=== PATIENT | female | born 1985 | race Hispanic/Latino ===

== ENCOUNTER 2018-07-29 09:37 | Emergency (ER) | payer OTHER ==
[~2018-07-29] VITALS: Ht 162.6 cm; Wt 108.9 kg
[2018-07-29] MEDS ORDERED: METFORMIN HCL500 MG PO (10:51)
[2018-07-29] MEDS ORDERED: SPIRONOLACTONE25 MG PO (10:51)
[2018-07-29] MEDS ORDERED: DOXYCYCLINE HY100 MG PO (10:51)
[2018-07-29] MEDS ORDERED: LEXAPRO10 MG PO (10:51)
[2018-07-29] MEDS ORDERED: HYDROXYZINE HCL25 MG PO (10:51)
[2018-07-29] MEDS ORDERED: LORAZEPAM 0.5 MG TAB PO ONE (11:00)
--- NOTE | 2018-07-29 12:38 | Diagnostic Imaging Report ---
EXAMINATION: CHEST 2 VIEWS INDICATION: \S\shortness of breath \S\[id number] \S\1122 \S\Y COMPARISON: None FINDINGS: PA and lateral views TUBES and LINES: None. LUNGS: Lungs are well inflated. Lungs are clear. There is no evidence of pneumonia or pulmonary edema. PLEURA: No pleural effusion or pneumothorax. HEART AND MEDIASTINUM: The cardiomediastinal silhouette is unremarkable. BONES AND SOFT TISSUES: No acute osseous lesion. Soft tissues are unremarkable. UPPER ABDOMEN: No free air under the diaphragm. IMPRESSION: No acute thoracic abnormality. Signed by: Dr. Catherine Valladares M.D. on 07/29/2018 12:34 PM
== END 2018-07-29 15:10 | disposition home or self-care (01) ==
LOC: ER 09:37
DX: F41.1 Generalized anxiety disorder (principal); F41.0 Panic disorder [episodic paroxysmal anxiety]; E11.9 Type 2 diabetes mellitus without complications
CPT/HCPCS: 71046; 81025; 93005; 99284

== ENCOUNTER 2018-09-25 12:11 | Emergency (ER) | payer SELFPAY ==
[~2018-09-25] VITALS: Ht 162.6 cm; Wt 108.9 kg
[~2018-09-25 12:11] MED LIST: DOXYCYCLINE HY100 MG PO; HYDROXYZINE HCL25 MG PO; LEXAPRO10 MG PO; METFORMIN HCL500 MG PO; SPIRONOLACTONE25 MG PO
--- OUTSIDE RECORDS SUMMARY | 2018-09-25 12:13 | XMS REPORT ---
[facility] Address Unknown Phone Unavailable Care Team Providers Care Chief Of Staff Name Role Phone Stefania HARRIS LAIRD Unavailable Unavailable Problems This patient has no known problems. Allergies, Adverse Reactions, Alerts This patient has no known allergies or adverse reactions. Medications This patient has no known medications. Encounters Start Date/Time End Date/Time Encounter Type Admission Type Attending [facility] Facility Care Department Encounter ID 2018-07-16 00:00:00 2018-07-16 00:00:00 Outpatient [facility] [id number] 2018-06-18 13:00:47 2018-06-18 13:00:47 Outpatient [facility] [id number] 2018-05-31 00:00:00 2018-05-31 00:00:00 Outpatient [facility] [id number] 2018-04-24 00:00:00 2018-04-24 00:00:00 Outpatient [facility] [id number] 2018-03-25 14:16:51 2018-03-25 14:16:51 Outpatient [facility] [id number] 2018-03-06 13:36:30 2018-03-06 13:36:30 Outpatient [facility] [id number] 2018-02-01 00:00:00 2018-02-01 00:00:00 Outpatient [facility] [id number] 2018-01-09 00:00:00 2018-01-09 00:00:00 Outpatient [facility] [id number] 2018-01-07 00:00:00 2018-01-07 00:00:00 Outpatient [facility] [id number] 2018-01-07 00:00:00 2018-01-07 00:00:00 Outpatient [facility] [id number] 2017-12-21 13:13:16 2017-12-21 13:13:16 Outpatient [facility] [id number] 2017-12-05 16:42:51 2017-12-05 16:42:51 Outpatient [facility] [id number] 2017-11-15 00:00:00 2017-11-15 00:00:00 Outpatient [facility] [id number] 2017-10-26 00:00:00 2017-10-26 00:00:00 Outpatient [facility] [id number] 2017-10-24 10:53:47 2017-10-24 10:53:47 Outpatient [facility] [id number] 2017-10-05 00:00:00 2017-10-05 00:00:00 Outpatient [facility] [id number] 2017-09-20 12:55:14 2017-09-20 12:55:14 Outpatient [facility] [id number] 2017-09-13 00:00:00 2017-09-13 00:00:00 Outpatient [facility] [id number] 2017-09-12 11:13:54 2017-09-12 11:13:54 Outpatient [facility] [id number] 2017-08-10 10:10:54 2017-08-10 10:10:54 Outpatient [facility] [id number] 2017-08-02 00:00:00 2017-08-02 00:00:00 Outpatient [facility] [id number] 2017-07-12 09:53:15 2017-07-12 09:53:15 Outpatient [facility] [id number] 2017-07-10 10:26:14 2017-07-10 10:26:14 Outpatient [facility] [id number] 2017-06-12 00:00:00 2017-06-12 00:00:00 Outpatient [facility] [id number] 2017-06-04 15:28:42 2017-06-04 15:28:42 Outpatient [facility] [id number] 2017-05-28 10:38:49 2017-05-28 10:38:49 Outpatient [facility] [id number] 2017-05-25 00:00:00 2017-05-25 00:00:00 Outpatient [facility] [id number] 2017-05-25 00:00:00 2017-05-25 00:00:00 Outpatient [facility] [id number] 2017-05-25 00:00:00 2017-05-25 00:00:00 Outpatient [facility] [id number] 2017-05-17 00:00:00 2017-05-17 00:00:00 Outpatient [facility] [id number] 2017-05-10 00:00:00 2017-05-10 00:00:00 Outpatient [facility] [id number] 2017-05-07 11:24:53 2017-05-07 11:24:53 Outpatient [facility] [id number] 2017-05-03 09:00:26 2017-05-03 09:00:26 Outpatient [facility] [id number] 2017-04-30 00:00:00 2017-04-30 00:00:00 Outpatient [facility] [id number] Results Test Description Test Time Test Comments Text Results Atomic Results Result Comments CHEST 2 VIEWS 2018-07-29 12:34:00 [place] [address] Patient Name: ROSY GARCIA MR #: [id number] : 1985 Age/Sex: 32/F Req #: [id number] Adm Physician: Ordered by: MELISSA MONROY NP Report #: [id number] Location: ER Room/Bed: Procedure: [id number] DX/CHEST 2 VIEWS Exam Date: 07/29/18 Exam Time: 1122 REPORT STATUS: Signed EXAMINATION: CHEST 2 VIEWS INDICATION: COMPARISON: None FINDINGS: PA and lateral views TUBES and LINES: None. LUNGS: Lungs are well inflated. Lungs are clear. There is no evidence of pneumonia or pulmonary edema. PLEURA: No pleural effusion or pneumothorax. HEART AND MEDIASTINUM: The cardiomediastinal silhouette is unremarkable. BONES AND SOFT TISSUES: No acute osseous lesion. Soft tissues are unremarkable. UPPER ABDOMEN: No free air under the diaphragm. IMPRESSION: No acute thoracic abnormality. Signed by: Dr. Graeme Casper M.D. on 07/29/2018 12:34 PM Dictated By: GRAEME CASPER MD [id number] Transcribed By: KHAI on 07/29/18 1234 COPY TO: MELISSA MONROY NP
[2018-09-25] MEDS ORDERED: SODIUM CHLORIDE 0.9% 1000ML 1,000 ML IV STA (12:39)
[2018-09-25 12:53] LABS: BASOPHILS % 0.3 % (0.0-1.0); EOSINOPHILS # (AUTO) 0.1 (0.0-0.4); EOSINOPHILS % 1.6 % (0.0-6.0); HEMATOCRIT 42.3 % (34.2-44.1); HEMOGLOBIN 14.3 g/dL (12.0-16.0); LYMPHOCYTES % 39.3 % (18.0-39.1); MEAN CORPUSCULAR HEMOGLOBIN 30.3 pg (28-32); MEAN CORPUSCULAR HGB CONC 33.8 g/dL (31-35); MEAN CORPUSCULAR VOLUME 89.6 fL (81-99); MONOCYTES # (AUTO) 0.5 (0.2-0.8); MONOCYTES % 6.2 % (4.4-11.3); NEUTROPHILS % 52.3 % (38.7-80.0); PLATELET COUNT 333 x10e3/uL (140-360); RED BLOOD COUNT 4.72 x10e6/uL (3.6-5.1); RED CELL DISTRIBUTION WIDTH 12.1 % (11.7-14.4)
[2018-09-25 13:10] LABS: ALANINE AMINOTRANSFERASE 31 IU/L (0-55); ALBUMIN 3.4 g/dL (3.5-5.0); ALBUMIN/GLOBULIN RATIO 0.9 (0.8-2.0); ALKALINE PHOSPHATASE 103 IU/L (40-150); ANION GAP 13.7 mmol/L (8-16); BLOOD UREA NITROGEN 8 mg/dL (7-26); BUN/CREATININE RATIO 10 (6-25); CALCIUM 9.1 mg/dL (8.4-10.2); CARBON DIOXIDE 27 mmol/L (22-29); CHLORIDE 98 mmol/L (98-107); EST GLOMERULAR FILTRATION RATE > 60 ML/MIN (60-); GLUCOSE 322 mg/dL (74-118); MAGNESIUM 1.7 MG/DL (1.3-2.1); POTASSIUM 3.7 mmol/L (3.5-5.1); SODIUM 135 mmol/L (136-145)
--- NOTE | 2018-09-25 13:22 | Diagnostic Imaging Report ---
Examination: Single AP view of the chest. COMPARISON: 07/29/2018 INDICATION: Facial numbness DISCUSSION: Lung volumes are low. No consolidation, pleural effusion, or pneumothorax. Stable cardiomediastinal contour. No overt pulmonary edema. No acute osseous abnormality. IMPRESSION: Low lung volumes without acute cardiopulmonary abnormality. Signed by: Dr. Vitaliy Díaz M.D. on 09/25/2018 1:18 PM
[2018-09-25 13:32] LABS: THYROID STIMULATING HORMONE 2.563 uIU/mL (0.350-4.940)
[2018-09-25 13:38] LABS: PREGNANCY TEST, URINE NEGATIVE (NEGATIVE)
--- NOTE | 2018-09-25 13:38 | Diagnostic Imaging Report ---
History: Left facial numbness Comparison studies: None Technique: Axial images were obtained from the skull base to the vertex. Coronal and sagittal reconstructions obtained from the axial data. Dose modulation, iterative reconstruction, and/or weight based adjustment of the mA/kV was utilized to reduce the radiation dose to as low as reasonably achievable. Findings: Scalp/skull: No abnormalities. No fractures, blastic or lytic lesions. Extra-axial spaces: No masses. No fluid collections. Brain sulci: Appropriate for age. Ventricles: Normal in size and configuration. No hydrocephalus. Parenchyma: No abnormal densities. No masses, hemorrhage, acute or chronic cortical vascular insults. Sellar/suprasellar region: No abnormalities Craniocervical junction: Patent foramen magnum. No Chiari one malformation. IMPRESSION: No abnormalities . . Signed by: DR Jaime Bunch M.D. on 09/25/2018 1:35 PM
[2018-09-25 13:53] LABS: CLARITY,URINE SL CLOUDY (CLEAR); COLOR,URINE YELLOW (YELLOW); KETONES,URINE TRACE (NEGATIVE); LEUKOCYTE ESTERASE ,URINE NEGATIVE (NEGATIVE); NITRITE,URINE NEGATIVE (NEGATIVE); PROTEIN,URINE DIPSTICK NEGATIVE (NEGATIVE); URINE UROBILINOGEN 0.2 mg/dL (0.2 - 1)
[2018-09-25 13:54] LABS: BACTERIA,URINE FEW /HPF; BILIRUBIN,URINE NEGATIVE (NEGATIVE); WBC,URINE (MAN) 0-5 /HPF (0-5)
[2018-09-25 13:55] LABS: AMORPHOUS SEDIMENT,URINE FEW (FEW); EPITHELIAL CELLS,URINE MODERATE /LPF; YEAST,URINE RARE
[2018-09-25] MEDS ORDERED: INSULIN REGULAR, HUMAN 100 UNIT/1 ML 3ML VIAL IV ONE (14:08)
== END 2018-09-25 16:01 | disposition home or self-care (01) ==
LOC: ER 12:11
DX: G51.0 Bell's palsy (principal); E11.9 Type 2 diabetes mellitus without complications; E28.2 Polycystic ovarian syndrome
CPT/HCPCS: 36415; 70450; 71045; 80053; 81001; 81025; 82948; 83735; 84443; 85025; 87086; 93005; 99284; J7030

== ENCOUNTER 2018-12-09 10:43 | Emergency (ER) | payer OTHER ==
[~2018-12-09] VITALS: Ht 162.6 cm; Wt 115.2 kg
[2018-12-09] MEDS ORDERED: KETOROLAC TROMETHAMINE 30 MG/ML VIAL IV STA (10:55)
[2018-12-09] MEDS ORDERED: ACETAMINOPHEN 325 MG TAB PO ONE (11:15)
--- NOTE | 2018-12-09 11:30 | NUR ---
X-RAY AT BEDSIDE FOR CXR.
[2018-12-09 11:34] LABS: BASOPHILS % 0.4 % (0.0-1.0); EOSINOPHILS # (AUTO) 0.1 (0.0-0.4); HEMATOCRIT 41.6 % (34.2-44.1); LYMPHOCYTES # (AUTO) 2.9 (1.0-3.2); LYMPHOCYTES % 41.4 % (18.0-39.1); MEAN CORPUSCULAR HEMOGLOBIN 30.8 pg (28-32); MEAN CORPUSCULAR HGB CONC 33.7 g/dL (31-35); MEAN CORPUSCULAR VOLUME 91.6 fL (81-99); MONOCYTES # (AUTO) 0.4 (0.2-0.8); NEUTROPHILS # (AUTO) 3.5 (2.1-6.9); NEUTROPHILS % 49.5 % (38.7-80.0); PLATELET COUNT 367 x10e3/uL (140-360); RED BLOOD COUNT 4.54 x10e6/uL (3.6-5.1); RED CELL DISTRIBUTION WIDTH 12.3 % (11.7-14.4)
[2018-12-09 11:50] LABS: ALANINE AMINOTRANSFERASE 40 IU/L (0-55); ALBUMIN 3.2 g/dL (3.5-5.0); ALBUMIN/GLOBULIN RATIO 0.9 (0.8-2.0); ALKALINE PHOSPHATASE 110 IU/L (40-150); ANION GAP 14.4 mmol/L (8-16); BLOOD UREA NITROGEN 7 mg/dL (7-26); BUN/CREATININE RATIO 8 (6-25); CALCIUM 8.6 mg/dL (8.4-10.2); CARBON DIOXIDE 27 mmol/L (22-29); CHLORIDE 99 mmol/L (98-107); CREATINE KINASE 59 IU/L (29-168); CREATININE, SERUM 0.85 mg/dL (0.57-1.11); EST GLOMERULAR FILTRATION RATE > 60 ML/MIN (60-); POTASSIUM 4.4 mmol/L (3.5-5.1); SODIUM 136 mmol/L (136-145)
[2018-12-09 11:52] LABS: GLUCOSE 444 mg/dL (74-118)
[2018-12-09] MEDS ORDERED: SODIUM CHLORIDE 0.9% 1000ML 1,000 ML IV SCH (12:15)
--- NOTE | 2018-12-09 12:20 | Diagnostic Imaging Report ---
EXAMINATION: CHEST SINGLE (PORTABLE) INDICATION: Chest pain. COMPARISON: Chest radiograph 09/25/2018. FINDINGS: TUBES and LINES: None. LUNGS: Low lung volumes which decreases sensitivity and specificity for pathology. Mild patchy bibasilar opacities. No evidence of lobar consolidation or pulmonary edema. PLEURA: No pleural effusion or pneumothorax. HEART AND MEDIASTINUM: The cardiomediastinal silhouette is unremarkable. BONES AND SOFT TISSUES: No acute osseous lesion. Soft tissues are unremarkable. UPPER ABDOMEN: No free air under the diaphragm. IMPRESSION: Low lung volumes with mild patchy bibasilar opacities, likely atelectasis. No evidence of acute radiographic abnormality. Signed by: Dr. Roosevelt Zimmerman MD on 12/09/2018 12:17 PM
[2018-12-09 14:49] VITALS: BP 123/71
[2018-12-09] MEDS ORDERED: INSULIN LISPRO 100 UNIT/1 ML 3ML VIAL SQ SCH (16:30)
== END 2018-12-09 15:05 | disposition home or self-care (01) ==
LOC: ER 10:43
DX: R07.89 Other chest pain (principal); S29.011A Strain of muscle and tendon of front wall of thorax, initial encounter; S29.012A Strain of muscle and tendon of back wall of thorax, initial encounter; E11.9 Type 2 diabetes mellitus without complications
CPT/HCPCS: 36415; 71045; 80053; 82550; 82553; 82948; 83880; 84484; 85025; 85379; 93005; 99283; J1885; J7030

== ENCOUNTER 2018-12-18 17:58 | Emergency (ER) | payer OTHER ==
[~2018-12-18] VITALS: Ht 162.6 cm; Wt 109.8 kg
[2018-12-18] MEDS ORDERED: ZOFRAN4 MG SL (18:55)
[2018-12-18] MEDS ORDERED: AUGMENTIN 875-1 EACH PO (18:56)
--- NOTE | 2018-12-18 19:42 | NUR ---
PT NOT IN WAITING ROOM FOR D/C INTRUCTIONS AND PRESCRIPTIONS.
--- NOTE | 2018-12-18 20:00 | NUR ---
NOT IN WAITING ROOM
== END 2018-12-18 20:15 | disposition left against medical advice (07) ==
LOC: ER 17:58
DX: M54.2 Cervicalgia (principal)

== ENCOUNTER 2019-01-02 19:10 | Emergency (ER) | payer OTHER ==
[~2019-01-02] VITALS: Ht 162.6 cm; Wt 109.8 kg
[~2019-01-02 19:10] MED LIST changes: +AUGMENTIN 875-1 EACH PO; +ZOFRAN4 MG SL
[2019-01-02] MEDS ORDERED: SODIUM CHLORIDE 0.9% 1000ML 1,000 ML IV STA (19:43)
[2019-01-02] MEDS ORDERED: FAMOTIDINE 20 MG/2 ML VIAL IV ONE (19:45)
[2019-01-02] MEDS ORDERED: ONDANSETRON HCL INJ 2MG/ML 2ML 2 MG/ML VIAL IV ONE (20:00)
[2019-01-02] MEDS ORDERED: ACETAMINOPHEN 325 MG TAB PO ONE (20:00)
[2019-01-02 21:42] LABS: BASOPHILS % 0.4 % (0.0-1.0); EOSINOPHILS # (AUTO) 0.2 (0.0-0.4); EOSINOPHILS % 2.1 % (0.0-6.0); HEMATOCRIT 41.9 % (34.2-44.1); HEMOGLOBIN 14.1 g/dL (12.0-16.0); LYMPHOCYTES # (AUTO) 3.3 (1.0-3.2); LYMPHOCYTES % 39.7 % (18.0-39.1); MEAN CORPUSCULAR HEMOGLOBIN 30.3 pg (28-32); MEAN CORPUSCULAR HGB CONC 33.7 g/dL (31-35); MEAN CORPUSCULAR VOLUME 89.9 fL (81-99); MONOCYTES # (AUTO) 0.5 (0.2-0.8); MONOCYTES % 5.6 % (4.4-11.3); NEUTROPHILS # (AUTO) 4.3 (2.1-6.9); PLATELET COUNT 372 x10e3/uL (140-360); RED BLOOD COUNT 4.66 x10e6/uL (3.6-5.1); RED CELL DISTRIBUTION WIDTH 12.3 % (11.7-14.4)
[2019-01-02 22:02] LABS: ALANINE AMINOTRANSFERASE 31 IU/L (0-55); ALBUMIN 3.2 g/dL (3.5-5.0); ALBUMIN/GLOBULIN RATIO 0.9 (0.8-2.0); ALKALINE PHOSPHATASE 99 IU/L (40-150); ANION GAP 14.8 mmol/L (8-16); BLOOD UREA NITROGEN 11 mg/dL (7-26); BUN/CREATININE RATIO 15 (6-25); CALCIUM 8.8 mg/dL (8.4-10.2); CARBON DIOXIDE 24 mmol/L (22-29); CHLORIDE 99 mmol/L (98-107); CREATININE, SERUM 0.73 mg/dL (0.57-1.11); EST GLOMERULAR FILTRATION RATE > 60 ML/MIN (60-); GLUCOSE 364 mg/dL (74-118); POTASSIUM 3.8 mmol/L (3.5-5.1); SODIUM 134 mmol/L (136-145)
--- NOTE | 2019-01-02 23:07 | Diagnostic Imaging Report ---
History: Right-sided neck pain. Comparison studies: None Technique: Axial, coronal and sagittal images from the skull base to the thoracic inlet. Coronal and sagittal images reconstructed from the axial data. Dose modulation, iterative reconstruction, and/or weight based adjustment of the mA/kV was utilized to reduce the radiation dose to as low as reasonably achievable. Intravenous contrast: 100 cc of Isovue 370. Findings: Soft tissues: Ill-defined, homogeneous soft tissue density lesion approximately measures 2.7 x 1.8 x 3.2 cm (SAT) that extends superiorly from the tongue base in the region of lingual tonsil, fills the vallecula and inferiorly extends to the preepiglottic space. Mild regional mass effect. Mild narrowing of the airway at the level of the epiglottis. Lymph nodes: No radiographically significant adenopathy. Prominent bilateral level 2A lymph nodes, the largest on right side measures approximately 2.2 cm in long axis. Vessels: Arteries and veins are patent. Glands (thyroid and submandibular): Normal in size and symmetric. No masses. Fatty change of bilateral Parotid glands. Orbits: No abnormalities. Paranasal sinuses: Clear. Temporal bones: No abnormalities. Skull base and facial bones: Intact. Cervical spine: Loss of normal cervical lordosis may be positional or due to muscle spasm. No canal or foraminal stenosis. IMPRESSION: An ill-defined soft tissue density mass, approximately measures 3.2 cm centered in the vallecula in the region of lingual tonsil. The differential possibilities include lymphoproliferative disorder, soft tissue neoplasm or infectious/inflammatory process in appropriate clinical setting. Recommendation: ENT consultation and direct scope examination. Signed by: Dr. Nancy Lemons M.D. on 01/02/2019 11:04 PM
[2019-01-03] MEDS ORDERED: SODIUM CHLORIDE 0.9% 50ML 50 ML ONE (02:27)
[2019-01-03] MEDS ORDERED: IOPAMIDOL 370 MG/ML 200 ML INFUS..BTL INJ ONE (02:27)
== END 2019-01-03 01:43 | disposition home or self-care (01) ==
LOC: ER 19:10
DX: M54.2 Cervicalgia (principal); R07.0 Pain in throat; J38.7 Other diseases of larynx; E11.9 Type 2 diabetes mellitus without complications
CPT/HCPCS: 36415; 70491; 80053; 84702; 85025; 86308; 99284; J2405; J7030; Q9967

== ENCOUNTER 2019-07-27 11:38 | Emergency (ER) | payer OTHER ==
[~2019-07-27] VITALS: Ht 162.6 cm; Wt 109.8 kg
--- OUTSIDE RECORDS SUMMARY | 2019-07-27 11:41 | XMS REPORT | Clinical Summary ---
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 Ndle Active escitalopram (LEXAPRO) 10 Take 1 tablet 30 tablet 3 mg tabletIndications: by mouth 9 Anxiety daily. Active spironolactone Take 1 tablet 90 tablet 2 (ALDACTONE) 25 mg by mouth 9 tabletIndications: PCOS daily. (polycystic ovarian syndrome) Active mometasone (NASONEX) 50 2 Sprays by 17 g 1 mcg/actuation nasal each nostril 9 sprayIndications: route daily. Seasonal allergies Active Cetirizine (ZYRTEC) 10 mg Take 10 mg by 30 capsule 2 capIndications: Seasonal mouth. 9 allergies Active dulaglutide (TRULICITY) Inject 1.5 mg 4 Pen 2 1.5 mg/0.5 mL under the 9 PnIjIndications: Type 2 skin Every diabetes mellitus with week on hyperglycemia, with Fridays. long-term current use of insulin Active insulin glargine 100 INJECT 46 15 mL 3 unit/mL (3 mL) UNITS EVERY 9 InPnIndications: Type 2 MORNING AND diabetes mellitus with 30 UNITS IN hyperglycemia, with EVENING. long-term current use of insulin Active blood glucose (TRUE Use to check 100 Each 2 METRIX GLUCOSE TEST blood glucose 9 STRIP) test 2-3 times per stripsIndications: Type 2 day. diabetes mellitus with hyperglycemia, with long-term current use of insulin Active lancets 33 gauge Use to check 100 Each 2 MiscIndications: Type 2 blood glucose 9 diabetes mellitus with 2-3 times per hyperglycemia, with day. long-term current use of insulin Active blood glucose meter (TRUE Use as 1 Kit 0 METRIX GLUCOSE directed.. 9 METER)Indications: Type 2 diabetes mellitus with hyperglycemia, with long-term current use of insulin 05/22/2019 Discontinued Cetirizine (ZYRTEC) 10 mg Take 10 mg by 30 capsule 2 capIndications: Nasal mouth. 7 congestion 01/21/2019 Discontinued fluticasone (FLONASE) 50 Use 2 Sprays 16 g 2 mcg/actuation nasal in each 7 sprayIndications: Nasal nostril congestion daily. 01/21/2019 Discontinued escitalopram oxalate Take 1 tablet 90 tablet 1 (LEXAPRO) 20 mg by mouth 8 tabletIndications: daily. Anxiety state 12/10/2018 Discontinued insulin glargine INJECT 36 18 mL 2 (BASAGLAR KWIKPEN U-100 UNITS 8 INSULIN) 100 unit/mL (3 SUBCUTANEOUSL mL) InPnIndications: Type Y IN THE 2 diabetes mellitus with MORNING AND hyperglycemia, with 20 UNITS IN long-term current use of THE EVENING. insulin 02/18/2019 Discontinued metFORMIN (GLUCOPHAGE XR) Take 2 120 tablet 2 500 mg ER extended tablets by 8 release mouth 2 times tabletIndications: daily. Uncontrolled type 2 diabetes mellitus without complication, without long-term current use of insulin 10/07/2018 Discontinued spironolactone Take 1 tablet 90 tablet 0 (ALDACTONE) 25 mg by mouth 8 tabletIndications: PCOS daily. (polycystic ovarian syndrome), Essential hypertension 10/07/2018 Discontinued Insulin Venus, Use with 100 Each 2 Disposable, (ALFRED PEN insulin twice 8 NEEDLE) 32 gauge x 5/32" daily. NdleIndications: Type 2 diabetes mellitus with hyperglycemia, with long-term current use of insulin 12/10/2018 Discontinued insulin NPH 100 unit/mL Inject 20 10 mL 3 injectionIndications: Units under 8 Uncontrolled type 2 the skin 2 diabetes mellitus with times daily hyperglycemia Please dispense with needles and syringes for BID dosing.. 05/22/2019 Discontinued spironolactone Take 1 tablet 90 tablet 0 (ALDACTONE) 25 mg by mouth 8 tabletIndications: PCOS daily. (polycystic ovarian syndrome), Essential hypertension 06/10/2019 Discontinued INSULIN SYRINGE USE ONE 180 Syringe 3 .5CC/31GX5/16" 0.5 mL 31 SYRINGE 8 gauge x 516 SUBCUTANEOUSL SyrgIndications: Y TWICE DAILY Uncontrolled type 2 diabetes mellitus without complication, without long-term current use of insulin 04/17/2019 Discontinued insulin glargine INJECT 40 18 mL 2 (BASAGLAR KWIKPEN U-100 UNITS 9 INSULIN) 100 unit/mL (3 SUBCUTANEOUSL mL) InPnIndications: Type Y IN THE 2 diabetes mellitus with MORNING AND hyperglycemia, with 25 UNITS IN long-term current use of THE EVENING. insulin 12/10/2018 fluconazole (DIFLUCAN) Take 1 tablet 1 tablet 1 150 mg tabletIndications: by mouth once 9 Vaginal wade for 1 dose Can repeat in 3 days if needed.. 12/17/2018 terconazole (TERAZOL 7) Insert 1 45 g 0 0.4 % vaginal applicatorful 9 creamIndications: Vaginal vaginally wade every night at bedtime for 7 days.. 06/11/2019 Discontinued Meloxicam 7.5 mg Take 1 tablet 60 tablet 1 tabletIndications: Strain by mouth 2 9 of lumbar region, times daily. subsequent encounter 02/18/2019 Discontinued dulaglutide (TRULICITY) Inject under 4 Pen 3 0.75 mg/0.5 mL the skin Once 9 PnIjIndications: Type 2 weekly.. diabetes mellitus with hyperglycemia, with long-term current use of insulin 06/10/2019 Discontinued flash glucose scanning by 1 Each 0 reader (FREESTYLE KAYKAY Misc.(Non-Bernabe 9 10 DAY READER) g; Combo MiscIndications: Type 2 Route) route. diabetes mellitus with hyperglycemia, with long-term current use of insulin 06/10/2019 Discontinued flash glucose sensor by 10 Each 3 (FREESTYLE KAYKAY 10 DAY Misc.(Non-Bernabe 9 SENSOR) KitIndications: g; Combo Type 2 diabetes mellitus Route) route. with hyperglycemia, with long-term current use of insulin 12/23/2018 dexamethasone (DECADRON) Take 40 mL by 40 mL 0 0.5 mg/5 mL oral mouth daily 9 solutionIndications: for 1 day. Cervical lymphadenopathy 02/24/2019 Discontinued traZODone (DESYREL) 50 mg Take 1 tablet 30 tablet 1 tabletIndications: by mouth at 9 Primary insomnia bedtime nightly. 05/22/2019 Discontinued mometasone (NASONEX) 50 2 Sprays by 17 g 1 mcg/actuation nasal each nostril 9 sprayIndications: Cough route daily. 01/28/2019 benzonatate (TESSALON Take 1 20 capsule 0 PERLES) 100 mg capsule by 9 capsuleIndications: Cough mouth 3 times daily as needed for up to 7 days for Cough. 06/10/2019 Discontinued metFORMIN (GLUCOPHAGE XR) Take 2 120 tablet 2 500 mg ER extended tablets by 9 release mouth 2 times tabletIndications: daily. Uncontrolled type 2 diabetes mellitus without complication, without long-term current use of insulin 05/22/2019 Discontinued dulaglutide (TRULICITY) Inject under 4 Pen 3 0.75 mg/0.5 mL the skin Once 9 PnIjIndications: Type 2 weekly.. diabetes mellitus with hyperglycemia, with long-term current use of insulin 04/18/2019 Discontinued escitalopram oxalate Take 1 tablet 30 tablet 2 (LEXAPRO) 20 mg by mouth 9 tabletIndications: daily. Anxiety 06/11/2019 Discontinued acetaminophen-codeine Take 12.5 mL 100 mL 0 (TYLENOL W/CODEINE) by mouth 9 120-12 mg/5 ml Soln oral every 6 hours elixirIndications: as needed for Post-operative pain Pain. 05/22/2019 Discontinued BASAGLAR KWIKPEN U-100 INJECT 40 15 mL 3 INSULIN 100 unit/mL (3 UNITS EVERY 9 mL) InPnIndications: Type MORNING AND 2 diabetes mellitus with 24 UNITS IN hyperglycemia, with EVENING long-term current use of insulin 06/10/2019 Discontinued dulaglutide (TRULICITY) Inject under 4 Pen 3 0.75 mg/0.5 mL the skin Once 9 PnIjIndications: Type 2 weekly.. diabetes mellitus with complication, without long-term current use of insulin 06/10/2019 Discontinued insulin glargine 100 INJECT 40 15 mL 3 unit/mL (3 mL) UNITS EVERY 9 InPnIndications: Type 2 MORNING AND diabetes mellitus with 30 UNITS IN complication, without EVENING. long-term current use of insulin 06/24/2019 terconazole (TERAZOL 7) Insert 1 45 g 0 0.4 % vaginal applicatorful 9 creamIndications: Yeast vaginally vaginitis every night at bedtime for 7 days.. 06/25/2019 Discontinued terbinafine HCl 1 % Apply to 30 g 0 topical creamIndications: affected area 9 Dermatitis and surrounding 1 cm of skin daily x 2 weeks.. 07/09/2019 terbinafine HCl (LAMISIL) Take 1 tablet 14 tablet 0 250 mg tabletIndications: by mouth 9 Tinea corporis daily for 14 days. Active Problems Problem Noted Date Decreased vision 01/03/2019 PCOS (polycystic ovarian syndrome) 01/03/2019 Neck mass 01/03/2019 Cervical lymphadenopathy 12/08/2016 Type 2 diabetes mellitus with complication, without long-term current use 07/14/2016 of insulin Morbid obesity 04/24/2013 Depression 07/20/2011 Vaginal discharge 07/20/2011 Encounters Care Team Description Date Type Specialty David Torres MD Pcp Communication 06/25/2019 Telephone Family Practice Emma Mendez 06/24/2019 Telephone Family Practice David Torres MD Dermatitis (Primary Dx); Yeast vaginitis 06/17/2019 Office Visit Family Practice Sudha Boston Refill Request 06/16/2019 Telephone Family Practice Radha Boyle RPH Results (BMP) 06/11/2019 Telephone Clinical Pharmacy Radha Boyle RPH Type 2 diabetes mellitus with hyperglycemia, with long- term current use of insulin; Type 2 diabetes mellitus with complication, without long-term current use of insulin 06/10/2019 Office Visit Clinical Pharmacy Radha Boyle RPH Appointment Related Questions (Pharmacist DTM f/u) 06/04/2019 Telephone Clinical Pharmacy Chas Torres MD Results 05/23/2019 Telephone Family Practice Chas Torres MD Type 2 diabetes mellitus with complication, without long-term current use of insulin (Primary Dx); PCOS (polycystic ovarian syndrome); Need for hepatitis B booster vaccination; Seasonal allergies 05/22/2019 Office Visit [facility] Dionne Fajardo MD Anxiety (Primary Dx) 04/18/2019 Office Visit [facility] Dionne Fajardo MD Type 2 diabetes mellitus with hyperglycemia, with long-term current use of insulin 04/17/2019 Refill [facility] Dionne Fajardo MD Anxiety (Primary Dx); Post-operative pain 02/24/2019 Office Visit [facility] Shea Geller Refill Request 02/18/2019 Telephone [facility] Leah Perez RN Shortness of Breath 02/14/2019 Telephone [facility] Dionne Fajardo MD Lymphadenopathy (Primary Dx); Cough; Primary insomnia 01/21/2019 Office Visit [facility] Melecio Arciniega MD Sharma, Kunal M, MD Viral upper respiratory tract infection (Primary Dx); Neck mass 01/20/2019 Emergency Emergency Medicine 01/20/2019 Travel Sudha Boston Pcp Communication (medication) 01/09/2019 Telephone [facility] Vee Erwin Sharon, MD 01/07/2019 [facility] Health/Nurse Visit Chas Torres MD Neck mass (Primary Dx); PCOS (polycystic ovarian syndrome); Decreased vision; Type 2 diabetes mellitus with complication, without long-term current use of insulin 01/03/2019 Office Visit [facility] Sudha Boston Uncontrolled type 2 diabetes mellitus with hyperglycemia (Primary Dx) 12/26/2018 Refill [facility] Melecio Arciniega MD Cervical lymphadenopathy (Primary Dx); Pharyngitis, unspecified etiology 12/21/2018 Emergency Emergency Medicine 12/21/2018 Travel Dionne Fajardo MD Anterior cervical lymphadenopathy (Primary Dx) 12/17/2018 Office Visit [facility] Dionne Fajardo MD Strain of lumbar region, subsequent encounter (Primary Dx); Type 2 diabetes mellitus with hyperglycemia, with long-term current use of insulin; Vaginal wade; Need for influenza vaccination 12/10/2018 Office Visit Family Practice Radha Boyle RPH Appointment Related Questions (Reminder Call / Cancelled Appt) 11/01/2018 Telephone Clinical Pharmacy Radha Boyle RPH Appointment Related Questions (Clinical Pharmacist Follow-Up) 10/21/2018 Telephone Clinical Pharmacy Dionne Fajardo MD Ramirez's palsy (Primary Dx); Uncontrolled type 2 diabetes mellitus with hyperglycemia; Essential hypertension; PCOS (polycystic ovarian syndrome); Flu vaccine need 10/07/2018 Office Visit Family Practice Kaylyn Auguste MD Uncontrolled type 2 diabetes mellitus without complication, without long-term current use of insulin 10/07/2018 Refill [facility] Radha Boyle RPH Appointment Related Questions (Clinical Pharmacist Follow-up) 10/03/2018 Telephone Clinical Pharmacy Radha Boyle RPH Appointment Related Questions (Clinical Pharmacist Follow-Up) 09/19/2018 Telephone Clinical Pharmacy after 07/26/2018 Immunizations Name Administration Dates Next Due Hepatitis B Adult 05/22/2019 Hepatitis B Pedi/Adol 06/18/2018, 03/25/2018 Influenza <Unspecified> 09/10/2017 Influenza Vaccine 07/11/2019, 07/26/2016, 10/03/2011 Influenza, Injectable, 12/10/2018 Quadrivalent, Preservative Free PNEUMOCOCCAL 23-VALPS 07/12/2016 VACCINE 25 MCG/0.5 ML INJECTION Tdap Tetanus, diphtheria, 10/03/2011 acellular pertussis Vaccine Family History Medical History Relation Name Comments Cancer Mother breast Hypothyroid Mother Psychiatry Mother depression Diabetes Paternal Grandmother Relation Name Status Comments Brother Alive Father Alive Maternal Grandfather Maternal Grandmother Mother Alive Paternal Grandfather Paternal Grandmother Sister Alive Sister Alive Social History Date Tobacco Use Types Packs/Day Years Used Never Smoker Smokeless Tobacco: Never Used Drinks/Week oz/Week Comments Alcohol Use No Sex Assigned at Date Recorded Not on file Industry Job Start Date Occupation Not on file Not on file Not on file Travel End Travel History Travel Start No recent travel history available. Last Filed Vital Signs Reading Time Taken Comments Vital Sign 158/94 06/17/2019 4:23 PM CDT Blood Pressure 92 06/17/2019 4:23 PM CDT Pulse 36.8 C (98.2 F) 06/17/2019 4:19 PM CDT Temperature 18 06/17/2019 4:19 PM CDT Respiratory Rate 97% 01/20/2019 7:38 AM SHOT DROPPER Oxygen Saturation - - Inhaled Oxygen Concentration 113.2 kg (249 lb 9.6 oz) 06/17/2019 4:19 PM CDT Weight 162.6 cm (5' 4") 06/17/2019 4:19 PM CDT Height 42.84 06/17/2019 4:19 PM CDT Body Mass Index Plan of Treatment Health Maintenance Due Date Last Done Comments Cervical Cancer Scrn (3 07/02/2019 07/02/2016 Yrs) IMM Influenza Seasonal 08/26/2019 12/10/2018, 09/10/2017, 01/25/2016Aug to January (>/=19 yrs) (Declined) DM Retinal Exam (Yearly) 11/26/2019 11/26/2018 (Previously completed - External), 05/20/2018 (Previously completed - External), 01/25/2016 DM Foot Exam (Yearly) 05/22/2020 05/22/2019, 10/07/2018, 07/10/2017, Additional history exists DM HGBA1C (Yearly) 05/22/2020 05/22/2019, 03/06/2018, 06/04/2017, Additional history exists DM Microalbumin Urine 05/22/2020 05/22/2019, 03/06/2018, 03/06/2018, Scrn (Yearly) Additional history exists Procedures Comments Procedure Name Priority Date/Time Associated Diagnosis BASIC METABOLIC PANEL (8) Routine 06/10/2019 Type 2 diabetes mellitus 2:44 PM CDT with hyperglycemia, with long-term current use of insulin DIABETES PATIENT Routine 05/22/2019 EDUCATION 10:21 AM CDT CARDIOVASCULAR RISK Routine 05/22/2019 ASSESSMENT 10:21 AM CDT MICROALBUMIN/CREATININE Routine 05/22/2019 Type 2 diabetes mellitus RATIO, RANDOM URINE 10:21 AM CDT with complication, without long-term current use of insulin LIPID PANEL Routine 05/22/2019 Type 2 diabetes mellitus 10:21 AM CDT with complication, without long-term current use of insulin HEMOGLOBIN A1C Routine 05/22/2019 Type 2 diabetes mellitus 10:21 AM CDT with complication, without long-term current use of insulin DIABETIC FOOT EXAM Routine 05/22/2019 Type 2 diabetes mellitus 9:56 AM CDT with complication, without long-term current use of insulin POC GROUP A STREP Routine 01/21/2019 Lymphadenopathy SCREEN-AFFILIATE MANUALLY ENTERED POC RAPID FLU-AFFILIATE Routine 01/21/2019 Cough MANUALLY ENTERED XRAY CHEST 2 VIEWS STAT 01/20/2019 Neck mass 4:06 AM SHOT DROPPER BMP POC Routine 01/20/2019 3:55 AM SHOT DROPPER 12 LEAD EKG Routine 01/20/2019 3:30 AM SHOT DROPPER HIV-1/HIV-2 ROUTINE STAT 01/20/2019 SCREENING 3:25 AM SHOT DROPPER BETA-HCG, QUALITATIVE STAT 01/20/2019 3:25 AM SHOT DROPPER CBC/DIFF STAT 01/20/2019 3:25 AM SHOT DROPPER POC GLUCOSE - IN LAB Routine 01/20/2019 (STAT) 1:16 AM SHOT DROPPER HEMOGLOBIN A1C Routine 01/07/2019 Uncontrolled type 2 4:09 PM SHOT DROPPER diabetes mellitus with hyperglycemia POC GLUCOSE - IN LAB Routine 12/21/2018 (STAT) 9:44 AM SHOT DROPPER POC GLUCOSE - IN LAB Routine 12/21/2018 (STAT) 9:26 AM SHOT DROPPER DIABETIC FOOT EXAM Routine 10/07/2018 Uncontrolled type 2 5:17 PM SHOT DROPPER diabetes mellitus with hyperglycemia after 07/26/2018 Results * BASIC METABOLIC PANEL (8) (06/10/2019 2:44 PM CDT) Glucose, Serum 114 (H) 65 - 99 mg/dL [facility] 01 BUN 10 6 - 20 mg/dL [facility] Creatinine, 0.51 (L) 0.57 - 1.00 mg/dL [facility] 01 Serum eGFR If 127 >59 mL/min/1.73 [facility] 01 NonAfricn Am eGFR If Africn 146 >59 mL/min/1.73 [facility] 01 Am BUN/Creatinine 20 9 - 23 [facility] 01 Ratio Sodium, Serum 141 134 - 144 mmol/L [facility] 01 Potassium, 4.1 3.5 - 5.2 mmol/L [facility] 01 Serum Chloride, Serum 104 96 - 106 mmol/L [facility] 01 Carbon Dioxide, 23 20 - 29 mmol/L [facility] 01 Total Calcium, Serum 9.0 8.7 - 10.2 mg/dL [facility] 01 Specimen Narrative Performed At Performed at:[address] [place] [address] [facility] [address] [place], [id number] Entry Level Software Developer: Shamir Caicedo MD, Phone:[phone] Performing Organization Address City/[facility]/Zipcode Phone Number [facility] [address] [place], [place] [id number] [facility] * CARDIOVASCULAR RISK ASSESSMENT (05/22/2019 10:21 AM CDT) Pathologist [facility] Interpretation NoteComment: Supplemental [facility] 01 report is available. Specimen Narrative Performed At Performed at:[facility] [employer] [facility] [address] [id number] Entry Level Software Developer: Moe Henriquez MD, Phone:[phone] Performing Organization Address City/[facility]/Zipcode Phone Number [facility] [address] [place], [place] [phone] [facility] 01 * HEMOGLOBIN A1C (05/22/2019 10:21 AM CDT) Only the most recent of 2 results within the time period is included. Pathologist [facility] Hemoglobin A1c 9.3 (H) 4.8 - 5.6 % [facility] 01 Comment: Prediabetes: 5.7 - 6.4 Diabetes: >6.4 Glycemic control for adults with diabetes: <7.0 Specimen Blood Narrative Performed At Performed at:01 - [facility] [place], [id number] Entry Level Software Developer: Shamir Caicedo MD, Phone:[phone] Performing Organization Address [facility] Phone Number [facility] [address] [place] [address] [facility] 01 * MICROALBUMIN/CREATININE RATIO, RANDOM URINE (05/22/2019 10:21 AM CDT) Creatinine, 177.3 Not Estab. mg/dL [facility] 01 Urine Microalbumin, 19.8 Not Estab. ug/mL [facility] 01 Urine Microalb/Creat 11.2 0.0 - 30.0 mg/g [facility] 01 Ratio Comment: creat Normal: 0.0 -30.0 Albuminuria: 31.0 - 300.0 Clinical albuminuria: >300.0 Specimen Urine Narrative Performed At Performed at: [facility] [address] [place], [place] [id number] Entry Level Software Developer: Shamir Caicedo MD, Phone:[phone] Performing Organization Address [facility] Phone Number [facility] [address] [place] [address] [facility] * LIPID PANEL (05/22/2019 10:21 AM CDT) Cholestrol, 215 (H) 100 - 199 mg/dL [facility] 01 Total Triglyceride 273 (H) 0 - 149 mg/dL [facility] 01 HDL 25 (L) >39 mg/dL [facility] 01 VLDL Cholestrol 55 (H) 5 - 40 mg/dL [facility] 01 Calc LDL Cholestrol 135 (H) 0 - 99 mg/dL [facility] 01 Calc Specimen Narrative Performed At Performed at: [facility] [address] [place], [place] [id number] Entry Level Software Developer: Shamir Caicedo MD, Phone:[phone] Performing Organization Address [facility] Phone Number [facility] [address] [place] [address] [facility] * DIABETES PATIENT EDUCATION (05/22/2019 10:21 AM CDT) PDF Image Not applicable [facility] 01 Specimen Narrative Performed At Performed at: - [employer] [facility] [address] [facility], [id number] Entry Level Software Developer: Moe Henriquez MD, Phone:[phone] Performing Organization Address City/State/Zipcode Phone Number [facility] [address] [facility] [place] [address] [facility] 01 * DIABETIC FOOT EXAM (05/22/2019 9:56 AM CDT) Only the most recent of 2 results within the time period is included. Narrative Performed At Chas Torres MD 05/28/20191:55 PM Diabetic Foot Exam was performed at 05/28/2019 1:49 PM.Right foot sensation is normal, right foot pulses are normal, right foot appearance is normal.Left foot sensation is normal,left foot pulses are normal, left foot appearance is normal. * POC RAPID FLU-AFFILIATE MANUALLY ENTERED (01/21/2019) Rapid Flu A POC neg Neg - Neg Rapid Flu B POC neg Neg - Neg Rapid Flu Con pass Pass - Pass POC Specimen * POC GROUP A STREP SCREEN-AFFILIATE MANUALLY ENTERED (01/21/2019) Group A Strep neg Neg - Neg POC GAS (Contr) pass Pass - Pass Specimen * XRAY CHEST 2 VIEWS (01/20/2019 4:06 AM SHOT DROPPER) Specimen Impressions Performed At IMPRESSION: [facility] No acute cardiopulmonary abnormality. This [facility] radiology report is a preliminary resident dictation until finalized by an attending.Changes to this preliminary report may occur in an additional preliminary or finalized version. I have reviewed the study and agree with the findings in this report. Signed By: Rustam Finn MD, 01/20/2019 4:23 AM Narrative Performed At EXAM: XR CHEST 2 VIEWS [facility] DATE: 01/20/2019 4:06 AM INDICATION: SOB, deep neck mass. Neck mass COMPARISON: 05/02/2013 TECHNIQUE: PA and lateral chest radiographs FINDINGS: Lines, tubes and hardware: Thin wire-like density projects transversely over the superficial soft tissues of the neck, appears external to patient. Lungs and pleura: Low lung volumes are present with bibasilar vascular crowding. Left lower lung platelike atelectasis. The costophrenic sulci are sharp, without pleural effusion. No pneumothorax is identified. Heart and mediastinum: The heart size is normal. The mediastinal contours are normal. Bones: No acute bony abnormality. Procedure Note Interface, Rad/Mammog In - 01/20/2019 4:28 AM SHOT DROPPER EXAM: XR CHEST 2 VIEWS DATE: 01/20/2019 4:06 AM INDICATION: SOB, deep neck mass. Neck mass COMPARISON: 05/02/2013 TECHNIQUE: PA and lateral chest radiographs FINDINGS: Lines, tubes and hardware: Thin wire-like density projects transversely over the superficial soft tissues of the neck, appears external to patient. Lungs and pleura: Low lung volumes are present with bibasilar vascular crowding. Left lower lung platelike atelectasis. The costophrenic sulci are sharp, without pleural effusion. No pneumothorax is identified. Heart and mediastinum: The heart size is normal. The mediastinal contours are normal. Bones: No acute bony abnormality. IMPRESSION IMPRESSION: No acute cardiopulmonary abnormality. This [facility] radiology report is a preliminary resident dictation until finalized by an attending. Changes to this preliminary report may occur in an additional preliminary or finalized version. I have reviewed the study and agree with the findings in this report. Signed By: Rustam Finn MD, 01/20/2019 4:23 AM Performing Organization Address City/State/Zipcode Phone Number SMS * BMP POC (01/20/2019 3:55 AM SHOT DROPPER) CO2 POC 28 21 - 32 mmol/L [facility] Chloride POC 100 98 - 107 mmol/L [facility] Potassium POC 5.5 (H) 3.50 - 5.10 mmol/L [facility] Sodium POC 137 136 - 145 mmol/L [facility] Glucose POC 272 (H) 74 - 106 mg/dL [facility] Urea Nitrogen 15 7 - 18 mg/dL [facility] Creatinine POC 0.5 (L) 0.6 - 1.3 mg/dL [facility] Calcium Ionized 1.06 (L) 1.15 - 1.29 mmol/L [facility] Hemoglobin POC 15.3 12.0 - 16.0 g/dL [facility] Hematocrit POC 45.0 37.0 - 47.0 % [facility] GFR, Estimated >60 mL/min/1.73 m2 [facility] MAIN-STATION 1 GFR, Estim, >60 mL/min/1.73 m2 [facility] Afr-Am MAIN-STATION 1 Specimen Performing Organization Address [facility] Phone Number [facility] MAIN-STATION 1 * 12 LEAD EKG (01/20/2019 3:30 AM SHOT DROPPER) 12 LEAD EKG FOR [facility] Shekhar Lucia [facility] Test Date:2019-01-20 Pat Name: ROSY JORGE epartment: [id number] Room: Gender: Nephrologist: [id number] Requested By: MELECIO SZYMANSKI Order Number: [id number] Reading MD: Moe Messer Measurements Intervals [place] Rate: 126 P: 52 NE: 144 QRS: -15 QRSD: 94 T:18 QT: 336 QTc:487 Interpretive Statements SINUS TACHYCARDIA LOW QRS VOLTAGE IN PRECORDIAL LEADS MODERATE VOLTAGE CRITERIA FOR LVH, CONSIDER NORMAL VARIANT POOR R WAVE PROGRESSION Electronically Signed On 01-20-2019 13:14:10 SHOT DROPPER by Moe Messer Specimen Performing Organization Address [facility] Phone Number [facility] * HIV-1/HIV-2 ROUTINE SCREENING (01/20/2019 3:25 AM SHOT DROPPER) HIV-1/HIV-2 Negative NEG [facility] B[facility]OD BANK Specimen Performing Organization Address [facility] Phone Number [facility] [address] [place] [address] * HCG, QUALITATIVE (01/20/2019 3:25 AM SHOT DROPPER) hCG, Negative [facility] B[facility]OD B[facility] Qualitative Specimen Blood Performing Organization Address [facility] Phone Number [facility] [address] [place] [address] * CBC/DIFF (01/20/2019 3:25 AM SHOT DROPPER) WBC 10.3 4.5 - 11.0 K/uL [facility] MAIN-ST[facility] 2 RBC 4.93 4.20 - 5.40 M/uL [facility] MAIN-ST[facility] 2 Hemoglobin 14.8 12.0 - 16.0 g/dL [facility]IN-STATION 2 Hematocrit 43.9 37.0 - 47.0 % [facility]-ST[facility] 2 MCV 89 82 - 92 fL [facility]-STATION 2 MCH 30.0 27.0 - 32.0 pg [facility] MAIN-STATION 2 MCHC 33.7 32.0 - 36.0 g/dL [facility]-STATION 2 RDW 39.2 36.4 - 46.3 fL [facility]-STATION 2 Platelets 372 150 - 400 K/uL [facility]-STATION 2 Mean Platelet 11.2 9.4 - 12.4 fL [facility] Volume MAIN-STATION 2 Percent NRBC 0.0 [facility]IN-STATION 2 Absolute NRBC 0.00 [facility]-STATION 2 Neutrophils 76.3 (H) 34.0 - 70.0 % [facility]-ST[facility] 2 Lymphs 14.0 (L) 20.0 - 50.0 % [facility]-STATION 2 Monocytes 7.9 5.0 - 12.0 % [facility]-ST[facility] 2 Eos 1.0 0.7 - 5.0 % [facility]-STATION 2 Basos 0.3 0.1 - 1.2 % [facility]IN-STATION 2 Immature 0.5 0.0 - 0.5 [facility] Granulocytes MAIN-STATION 2 Neutrophils 7.89 (H) 1.56 - 6.13 K/uL [facility] (Absolute) MAIN-STATION 2 Lymphs 1.45 1.18 - 3.74 K/uL [facility] (Absolute) MAIN-STATION 2 Monocytes(Absol 0.82 (H) 0.24 - 0.36 K/uL [facility] alfredo) MAIN-STATION 2 Eos (Absolute) 0.10 0.04 - 0.36 K/uL [facility] MAIN-STATION 2 Baso (Absolute) 0.03 0.01 - 0.08 K/uL [facility]IN-STATION 2 Immature Grans 0.05 (H) 0.00 - 0.03 K/uL [facility] (Abs) MAIN-STATION 2 Specimen Blood Performing Organization Address City/State/[facility] Phone Number [facility] MAIN-STATION 2 * GLUCOSE POC (01/20/2019 1:16 AM SHOT DROPPER) Only the most recent of 3 results within the time period is included. Glucose POC 299 (H) 74 - 106 mg/dL [facility] MAIN-STATION 1 Specimen Performing Organization Address City/State/Zipcode Phone Number [facility]IN-STATION 1 after 07/26/2018 Insurance Type Payer Benefit Subscriber ID Effective Phone Address Plan / Dates Group ALEKSANDRAR BY SUPERIOR ZAMORA xxxxxxxxxxx 2018-P [phone] [id number] [place] [id number] [facility] SELF-PAY SELF-PAY xxxxxx 2018- [phone] [id number] [place] [address]
--- OUTSIDE RECORDS SUMMARY | 2019-07-27 11:42 | XMS REPORT | Clinical Summary ---
Author Author CHRISTIANO [facility] Address Unknown Phone Unavailable Care Team Providers Care Certified Low Vision Therapist Name Role Phone Dionne Fajardo MD PCP Allergies No Known Allergies Medications End Date Status Medication Sig Dispensed Refills Start Date Active metFORMIN (GLUCOPHAGE) Take 1,000 mg 0 1000 MG tablet by mouth 2 (two) times daily with breakfast and dinner. Active dulaglutide 0.75 mg/0.5 Inject 0.75 0 mL PnIj mg subcutaneousl y every 7 days Trulicity every Sunday . Active insulin glargine Inject 0 (BASAGLAR KWIKPEN U-100 subcutaneousl INSULIN) 100 unit/mL (3 y 2 (two) mL) InPn times daily Basaglar insulin, 40units in am and 30 units in HS . Active levoFLOXacin (LEVAQUIN) Take 500 mg 0 500 MG tablet by mouth daily. Active lidocaine HCl (MAGIC Take 10 mLs 90 mL 0 MOUTHWASH, WITHOUT by mouth 9 STEROID & BENADRYL,) every 6 (six) suspension hours as needed. 01/14/2019 Discontinued metFORMIN (GLUMETZA) 1000 Take 1,000 mg 0 MG (MOD) 24 hr tablet by mouth 2 (two) times daily. 02/21/2019 HYDROcodone-acetaminophen Take 15 mLs 473 mL 0 (LORTAB,HYCET) 7.5-325 by mouth 4 9 mg/15 mL Soln solution (four) times daily as needed for Pain for up to 10 days. Max Daily Amount: 60 mLs 02/14/2019 Discontinued lidocaine HCl (MAGIC Take 10 mLs 90 mL 0 MOUTHWASH, WITH STEROID,) by mouth 9 suspension every 4 (four) hours as needed For throat pain. 02/21/2019 docusate sodium (COLACE) Take 1 10 capsule 0 100 MG capsule capsule (100 9 mg total) by mouth daily for 10 days To prevent constipation while taking pain meds. 02/14/2019 Discontinued acetaminophen-codeine Take 5 mLs by 60 mL 0 120-12 mg/5 mL suspension mouth every 6 9 (six) hours as needed for Pain for up to 10 days. Max Daily Amount: 20 mLs 02/19/2019 amoxicillin (AMOXIL) 400 Take 6.5 mLs 65 mL 0 mg/5 mL suspension (516 mg 9 total) by mouth 2 (two) times daily for 5 days. 02/14/2019 Discontinued dexamethasone 1 mg/mL Take 8 mLs (8 8 mL 0 Drop oral drops mg total) by 9 mouth once for 1 dose. 02/14/2019 dexamethasone 1 mg/mL Take 8 mLs (8 8 mL 0 Drop oral drops mg total) by 9 mouth once for 1 dose. 02/24/2019 acetaminophen-codeine Take 15 mLs 60 mL 0 120-12 mg/5 mL suspension by mouth 9 every 6 (six) hours as needed for Pain for up to 10 days. Max Daily Amount: 60 mLs Active Problems Problem Noted Date Lingual tonsil hypertrophy 02/10/2019 Encounters Care Team Description Date Type Specialty Neil Levin MD Post-operative pain (Primary Dx); Lingual tonsil hypertrophy; Post-procedural fever; Nasal congestion 02/14/2019 Emergency Emergency Medicine 02/14/2019 Adair Cordero MD 02/10/2019 Anesthesia Event John Guevara MD ROBOTIC ASSISTED LINGUAL TONSILLECTOMY 02/10/2019 Surgery John Guevara MD Insulin dependent type 2 diabetes mellitus, uncontrolled (HCC) 02/10/2019 Hospital General Internal Medicine - Encounter 02/12/2019 John Guevara MD 01/15/2019 Hospital Cardiology Encounter John Guevara MD 01/15/2019 Hospital Pre-Admission Testing Encounter 01/15/2019 Orders Only General Internal Medicine Resource, [facility] Preadmit Phone 01/14/2019 Hospital Pre-Admission Testing Encounter after 07/26/2018 Social History Date Tobacco Use Types Packs/Day Years Used Former Smoker Smokeless Tobacco: Never Used Comments: quit 2015 Alcohol Use Drinks/Week oz/Week Comments No Alcohol Habits Answer Date Recorded How often do you have a drink containing alcohol? Never 01/14/2019 How many drinks containing alcohol do you have on Not asked a typical day when you are drinking? How often do you have six or more drinks on one Not asked occasion? Sex Assigned at Date Recorded Not on file Industry Job Start Date Occupation Not on file Not on file Not on file Travel End Travel History Travel Start No recent travel history available. Last Filed Vital Signs Time Taken Vital Sign Reading 02/14/2019 10:20 PM CDT Blood Pressure 132/77 02/14/2019 10:20 PM CDT Pulse 97 02/14/2019 10:20 PM CDT Temperature 37.4 C (99.4 F) 02/14/2019 10:20 PM CDT Respiratory Rate 16 02/14/2019 10:20 PM CDT Oxygen Saturation 95% - Inhaled Oxygen - Concentration 02/14/2019 11:07 AM CDT Weight 113.4 kg (250 lb) 02/14/2019 11:07 AM CDT Height 162.6 cm (5' 4") 02/14/2019 11:07 AM CDT Body Mass Index 42.91 Plan of Treatment Not on file Procedures Comments Procedure Name Priority Date/Time Associated Diagnosis INTRAOPERATIVE PATH 04/10/2019 REPORT - SCAN 4:21 PM CDT INTRAOPERATIVE PATH 02/28/2019 REPORT - SCAN 2:57 PM CDT REPORT OF PROCEDURE - 02/19/2019 ENDOSCOPY SCAN 2:12 PM CDT RESPIRATORY PANEL [facility] Add-On 02/14/2019 9:22 PM CDT TROPONIN I STAT 02/14/2019 7:21 PM CDT POCT-GLUCOSE METER Routine 02/14/2019 6:37 PM CDT POCT-LACTIC ACID, VENOUS Routine 02/14/2019 6:14 PM CDT RAPID INFLUENZA A&B STAT 02/14/2019 SCREEN 6:14 PM CDT CBC W/PLT COUNT & AUTO STAT 02/14/2019 DIFFERENTIAL 2:00 PM CDT D-DIMER STAT 02/14/2019 2:00 PM CDT PT/APTT STAT 02/14/2019 2:00 PM CDT CBC W/PLT COUNT & AUTO STAT 02/14/2019 DIFFERENTIAL 2:00 PM CDT TROPONIN I STAT 02/14/2019 2:00 PM CDT BASIC METABOLIC PANEL (7) STAT 02/14/2019 2:00 PM CDT XR CHEST 1 VIEW STAT 02/14/2019 PORTABLE/BEDSIDE 2:00 PM CDT ECG 12-LEAD Routine 02/14/2019 1:38 PM CDT Procedure Note - Interface, External Ris In - 02/14/2019 3:32 PM CDT Ventricula r Rate 96 BPM Atrial Rate 96 BPM P-R Interval 146 ms QRS Duration 90 ms Q-T Interval 358 ms QTC Calculatio n(Bazett) 452 ms P [place] 62 degrees R [place] 72 degrees T [place] -9 degrees Normal sinus rhythm Cannot rule out Anterior infarct (cited on or before 9) Abnormal ECG When compared with ECG of 9 14:09, Questionab le change in initial forces of Anterior leads Nonspecifi c T wave abnormalit y, improved in Lateral leads ECG 12-LEAD STAT 02/14/2019 1:38 PM CDT POCT-GLUCOSE METER Routine 02/14/2019 1:36 PM CDT POCT-GLUCOSE METER Routine 02/12/2019 8:50 AM CDT POCT-GLUCOSE METER Routine 02/11/2019 8:55 PM CDT POCT-GLUCOSE METER Routine 02/11/2019 4:52 PM CDT POCT-GLUCOSE METER Routine 02/11/2019 1:05 PM CDT POCT-GLUCOSE METER Routine 02/11/2019 11:53 AM CDT POCT-GLUCOSE METER Routine 02/11/2019 11:49 AM CDT POCT-GLUCOSE METER Routine 02/11/2019 7:55 AM CDT POCT-GLUCOSE METER Routine 02/10/2019 9:02 PM CDT POCT-GLUCOSE METER Routine 02/10/2019 5:39 PM CDT POCT-GLUCOSE METER Routine 02/10/2019 11:48 AM CDT POCT-GLUCOSE METER Routine 02/10/2019 9:59 AM CDT XR ABDOMEN 1 VIEW ANNITA 02/10/2019 9:59 AM CDT TISSUE EXAM AP Routine 02/10/2019 8:48 AM CDT FLOW CYTOMETRY Routine 02/10/2019 8:48 AM CDT FLOW CYTOMETRY Routine 02/10/2019 REQUISITION 8:48 AM CDT PROCEDURE W/ DAVINCI 02/10/2019 Lingual tonsil 7:30 AM CDT hypertrophy Case Notes 60 MINS PER BRANDIS ROBOTIC ASSISTED LINGUAL 02/10/2019 Lingual tonsil TONSILLECTOMY 7:30 AM CDT hypertrophy Case Notes 60 MINS PER BRANDIS HCG, QUANTITATIVE, STAT 02/10/2019 6:42 AM CDT POCT-GLUCOSE METER Routine 02/10/2019 6:21 AM CDT ECG 12-LEAD Routine 01/15/2019 2:09 PM LEGAL BILLING SPECIALIST Procedure Note - Interface, External Ris In - 01/15/2019 4:39 PM LEGAL BILLING SPECIALIST Ventricula r Rate 99 BPM Atrial Rate 99 BPM P-R Interval 150 ms QRS Duration 92 ms Q-T Interval 312 ms QTC Calculatio n(Bazett) 400 ms P [place] 46 degrees R [place] -3 degrees T [place] 29 degrees Normal sinus rhythm Minimal voltage criteria for LVH, may be normal variant Cannot rule out Anterior infarct , age undetermin ed Abnormal ECG No previous ECGs available ECG 12-LEAD Routine 01/15/2019 2:09 PM LEGAL BILLING SPECIALIST PLATELET COUNT Routine 01/15/2019 2:09 PM LEGAL BILLING SPECIALIST HEMOGLOBIN Routine 01/15/2019 2:09 PM LEGAL BILLING SPECIALIST ELECTROLYTE PANEL Routine 01/15/2019 2:09 PM LEGAL BILLING SPECIALIST BUN AND CREATININE Routine 01/15/2019 2:09 PM LEGAL BILLING SPECIALIST after 07/26/2018 Results * INTRAOPERATIVE PATH REPORT - SCAN (04/10/2019 4:21 PM CDT) Only the most recent of 2 results within the time period is included. Narrative Performed At * EKG-SCANNED (02/19/2019 2:12 PM CDT) Narrative Performed At * Respiratory Panel [facility] (02/14/2019 9:22 PM CDT) Human Metapneumovirus Not detected Not detected, [facility] Rhinovirus Not detected Not detected, [facility] Influenza A Not detected Not detected, [facility] INFLUENZA A (NO SUBTYPE) Not detected, [facility] Influenza A subtype H1 Not detected, [facility] Influenza A Subtype H3 Not detected, [facility] Influenza A Subtype Not detected, [facility] H1-[address] [facility] Influenza B Not detected Not detected, [facility] Respiratory Syncytial Not detected Not detected, [facility] Virus [facility] Parainfluenza Virus 1 Not detected Not detected, [facility] Parainfluenza Virus 2 Not detected Not detected, [facility] Parainfluenza virus 3 Not detected Not detected, [facility] Parainfluenza Virus 4 Not detected Not detected, [facility] Adenovirus Not detected Not detected, [facility] Coronavirus 229E Not detected Not detected, [facility] Coronavirus HKU1 Not detected Not detected, [facility] Coronavirus NL63 Not detected Not detected, [facility] Coronavirus OC43 Not detected Not detected, [facility] Bordetella Pertussis Not detected Not detected, [facility] Chlamydophila Pneumoniae Not detected Not detected, [facility] Mycoplasma Pneumoniae Not detected Not detected, [facility] Specimen Nasopharyngeal Narrative Performed At Other viruses and bacteria not targeted by this PCR panel cannot be excluded; [facility] therefore clinical correlation and follow up of serology, culture results, and [facility] other molecular studies is required. The results are not intended to be used as the sole means for clinical diagnosis or patient management decisions. This sample was tested at the [facility] Molecular Diagnostics Laboratory using the [employer] Respiratory Panel. It is FDA cleared and has been verified and approved by the [facility] Molecular [facility]ostics Laboratory for clinical use on nasal swab specimens. It is not FDA-cleared for use on bronchial wash/lavage samples. However, for this sample type, validation was performed and test characteristics were determined and approved, by [facility] Molecular Diagnostics laboratory for clinical use under the Clinical Laboratory Improvement Amendments (CLIA) of 1988 requirements. Therefore, FDA clearance is not required.This laboratory is CLIA-certified and [employer] (CAP)-accredited to perform high complexity testing. Performing Organization Address City/State/Zipcode Phone Number [facility] [address] [place] [address] [facility] * Troponin I (not available at [facility]) (02/14/2019 7:21 PM CDT) Only the most recent of 2 results within the time period is included. Troponin I <0.01 0.00 - 0.03 ng/mL [facility] Specimen Blood Narrative Performed At Troponin I (TnI) levels must be interpreted in the context of the presenting [facility] symptoms and the clinical findings. Elevated TnI levels indicate myocardial [facility] damage, but are not specific for ischemic heart disease. Elevated TnI levels are seen in patients with other cardiac conditions (including myocarditis and congestive heart failure), and slight TnI elevations occur in patients with other conditions, including sepsis, renal failure, acidosis, acute neurological disease, and persistent tachyarrhythmia. Performing Organization Address City/[facility] [place] [address] [facility] * POC-Glucose meter (02/14/2019 6:37 PM CDT) Only the most recent of 14 results within the time period is included. POC-Glucose Meter 121 (H)Comment: TESTED AT 70 - 110 mg/dL [address] [address] Specimen Blood Performing Organization Address [facility] Cent[facility]ofl Phone Number [address] [address] [facility] * POC-Lactic Acid, Venous (02/14/2019 6:14 PM CDT) POC-Lactic Acid, Venous 1.5Comment: TESTED AT [facility] 0.9 - 1.7 mmol/L [address] Specimen Blood Performing Organization Address [facility] [place] [address] [facility] * Influenza antigen A & B (Rapid) (02/14/2019 6:14 PM CDT) Rapid Influenza A Antigen Negative Negative, Inconclusive [facility] Rapid influenza B Antigen Negative Negative, Inconclusive [facility] Specimen Nasopharyngeal Performing Organization Address [facility] Phone Number [address] [phone] [facility] * XR chest 1 view portable / bedside (02/14/2019 2:00 PM CDT) Specimen Narrative Performed At FINAL REPORT [facility] Clinical History: SHORTNESS OF BREATH Comparison Study: None Findings:The heart and lungs are within normal limits.The pleural spaces are clear.No significant bony or soft tissue abnormalities are seen. Impression: No active cardiopulmonary disease. Signed: Satish Thornton MD Report Verified Date/Time:02/14/2019 14:05:04 Reading Location: [address] Consult Reading Room Procedure Note Interface, External Ris In - 02/14/2019 2:07 PM CDT FINAL REPORT Clinical History: SHORTNESS OF BREATH Comparison Study: None Findings: The heart and lungs are within normal limits. The pleural spaces are clear. No significant bony or soft tissue abnormalities are seen. Impression: No active cardiopulmonary disease. Signed: Satish Thornton MD Report Verified Date/Time: 02/14/2019 14:05:04 Reading Location: [facility] C0[facility] Consult Reading Room Performing Organization Address City/State/Zipcode Phone Number [facility] * PT/PTT (02/14/2019 2:00 PM CDT) Protime 12.9 11.7 - 14.7 seconds [facility] INR 0.9 <=5.9 [facility] PTT 29.5 22.5 - 36.0 seconds [facility] Specimen Blood Narrative Performed At RECOMMENDED COUMADIN/WARFARIN INR THERAPY RANGES [facility] STANDARD DOSE: 2.0 - 3.0 Includes: PROPHYLAXIS for venous thrombosis, [facility] systemic embolization; TREATMENT for venous thrombosis and/or pulmonary embolus. HIGH RISK: Target INR is 2.5-3.5 for patients with mechanical heart valves. Performing Organization Address City/State/Zipcode Phone Number [place] [phone] [place] [address] [facility] * CBC with platelet count + automated diff (02/14/2019 2:00 PM CDT) WBC 10.3 3.5 - 10.5 K/L [facility] RBC 4.46 3.93 - 5.22 M/L [facility] Hemoglobin 13.3 11.2 - 15.7 GM/DL [facility] Hematocrit 42.0 34.1 - 44.9 % [facility] MCV 94.2 79.4 - 94.8 fL [facility] MCH 29.8 25.6 - 32.2 pg [facility] MCHC 31.7 (L) 32.2 - 35.5 GM/DL [facility] RDW 12.1 11.7 - 14.4 % [facility] Platelets 363 150 - 450 K/CU MM [facility] MPV 10.3 9.4 - 12.3 fL [facility] nRBC 0 0 - 0 /100 WBC [facility] % Neutros 66 % [facility] % Lymphs 25 % [facility] % Monos 5 % [facility] % Eos 3 % [facility] % Baso 0 % [facility] # Neutros 6.81 (H) 1.56 - 6.13 K/L [facility] # Lymphs 2.54 1.18 - 3.74 K/L [facility] # Monos 0.54 (H) 0.24 - 0.36 K/L [facility] # Eos 0.35 0.04 - 0.36 K/L [facility] # Baso 0.03 0.01 - 0.08 K/L [facility] Immature 1 0 - 1 % [facility]-Relative [facility] Specimen Blood Performing Organization Address City/[facility] [facility] Cent[facility]ode Phone Number [place] [phone] [place] [address] [facility] * D-dimer, quantitative (02/14/2019 2:00 PM CDT) D-Dimer, Quant 0.44 <0.50 MG/L FEU [facility] Specimen Blood Narrative Performed At Intended Use: The D-Dimer Assay can be used to aid in the diagnosis of Deep Vein [facility] Thrombosis (DVT) and Pulmonary Embolism Disease (PED). [facility] In patients with low pre-test probability, various studies concerning STA Liatest D-dimer test have reported that with a cutoff value of 0.50 MG/L FEU, the Negative Predictive Value (NPV) regarding the exclusion of thrombosis is within 95-100% range. Performing Organization Address [facility] Phone Number [place] [phone] [place], [place] [phone] [facility] * Basic Metabolic Panel (02/14/2019 2:00 PM CDT) Sodium 140 136 - 145 meq/L [facility] Potassium 3.7 3.5 - 5.1 meq/L [facility] Chloride 101 98 - 107 meq/L [facility] CO2 30 (H) 22 - 29 meq/L [facility] BUN 8 7 - 21 mg/dL [facility] Creatinine 0.62 0.57 - 1.25 mg/dL [facility] Glucose 153 (H) 70 - 105 mg/dL [facility] Calcium 9.1 8.4 - 10.2 mg/dL [facility] EGFR 111Comment: ESTIMATED GFR IS mL/min/1.73 sq m [facility] NOT ACCURATE CREATININE [facility] CLEARANCE IN PREDICTING GLOMERULAR FILTRATION RATE. ESTIMATED GFR IS NOT APPLICABLE FOR DIALYSIS PATIENTS. Specimen Blood Performing Organization Address [facility] [facility] Cent[facility]ode Phone Number [facility] [phone] [facility] * ECG 12 lead (02/14/2019 1:38 PM CDT) Only the most recent of 2 results within the time period is included. Specimen Narrative Performed At Ventricular Rate 96 BPM GE MUSE Atrial Rate 96 BPM P-R Interval 146 ms QRS Duration 90 ms Q-T Interval 358 ms QTC Calculation(Bazett) 452 ms P [place] 62 degrees R [place] 72 degrees T [place] -9 degrees Normal sinus rhythm Cannot rule out Anterior infarct (cited on or before 15-JAN-2019) Abnormal ECG When compared with ECG of 15-JAN-2019 14:09, Questionable change in initial forces of Anterior leads Nonspecific T wave abnormality, improved in Lateral leads Confirmed by MD Rolle Roberto ([id number]) on 02/15/2019 1:09:40 PM Procedure Note Interface, External Ris In - 02/15/2019 1:09 PM CDT Ventricular Rate 96 BPM Atrial Rate 96 BPM P-R Interval 146 ms QRS Duration 90 ms Q-T Interval 358 ms QTC Calculation(Bazett) 452 ms P [place] 62 degrees R [place] 72 degrees T [place] -9 degrees Normal sinus rhythm Cannot rule out Anterior infarct (cited on or before 15-JAN-2019) Abnormal ECG When compared with ECG of 15-JAN-2019 14:09, Questionable change in initial forces of Anterior leads Nonspecific T wave abnormality, improved in Lateral leads Confirmed by MD Rolle Roberto ([id number]) on 02/15/2019 1:09:40 PM Performing Organization Address [facility] Phone Number [facility] * XR abdomen / KUB 1 view (02/10/2019 9:59 AM CDT) Specimen Narrative Performed At FINAL REPORT Pharmaxis EXAM: AP abdominal radiograph HISTORY PROVIDED: Dobbhoff tube placement COMPARISON: None available IMPRESSION: The examination is limited secondary to motion artifact. The Dobbhoff tube is looped within the left upper quadrant with the tip projecting over the expected location of the fundus of the stomach. The visualized bowel gas pattern is nonspecific but appears nonobstructive. No definite free air is seen, this examination is insensitive for the detection of free air. No acute osseous abnormality. Signed: Camille Carl MD Report Verified Date/Time:02/10/2019 09:58:06 Reading Location: [facility] Mammo Reading Room Procedure Note Interface, External Ris In - 02/12/2019 1:12 PM CDT FINAL REPORT EXAM: AP abdominal radiograph HISTORY PROVIDED: Dobbhoff tube placement COMPARISON: None available IMPRESSION: The examination is limited secondary to motion artifact. The Dobbhoff tube is looped within the left upper quadrant with the tip projecting over the expected location of the fundus of the stomach. The visualized bowel gas pattern is nonspecific but appears nonobstructive. No definite free air is seen, this examination is insensitive for the detection of free air. No acute osseous abnormality. Signed: Camille Carl MD Report Verified Date/Time: 02/10/2019 09:58:06 Reading Location: [facility] Mammo Reading Room Performing Organization Address City/State/Zipcode Phone Number [facility] * Tissue Exam (02/10/2019 8:48 AM CDT) Case Report Surgical Pathology [facility] Report [facility] Case: [id number] Authorizing Provider:John Guevara MD Collected: 02/10/2019 0848 Ordering Location: [facility] PERIOPERATIVE Received: 02/10/2019 0851 SERVICES Pathologist: Carmen Morales MD Specimens: A) - Soft Tissue, Other, right base of tongue. Possible lymphoma B) - Soft Tissue, Other, right base of tongue C) - Soft Tissue, Other, left base of tongue D) - Soft Tissue, Other, midline base of tongue DIAGNOSIS A. RIGHT BASE OF TONGUE, [facility] EXCISION: [facility] - FOLLICULAR LYMPHOID HYPERPLASIA - NEGATIVE FOR MALIGNANCY - SEE COMMENT B. RIGHT BASE OF TONGUE, BIOPSY: - FOLLICULAR LYMPHOID HYPERPLASIA C. LEFT BASE, TONGUE, BIOPSY: - FOLLICULAR LYMPHOID HYPERPLASIA WITH CRUSH ARTIFACT D. TONGUE, MIDLINE, BIOPSY: - TONGUE TISSUE WITH CRUSH ARTIFACT, NEGATIVE FOR MALIGNANCY CC/pl Signing Pathologist Direct Phone Line: [phone] COMMENT The concurrent flow cytometry [facility] study ([id number]) does not show [facility] monotypic B cell population or abnormal T cells, supporting the above findings. CPT Code(s) A. 07696, [address] [facility] B. [address] [facility] C. [address]9705 D. 54696 CLINICAL HISTORY Lingual tonsil hypertrophy [facility] SPECIMEN SOURCE A. Right base of tongue, [facility] possible lymphoma; B. Right [facility] base of tongue; C. Left base of tongue; D. Midline base of tongue GROSS DESCRIPTION B. Received labeled with the [facility] patient's name and "right base [facility] of tongue" is a 2.2 x 1.0 x 0.4 cm tissue fragment; and entirely submitted in B1-B2. C. Received labeled with the patient's name and "left base of tongue" is a 1.5 x 1.5 x 0.8 cm tissue fragment; entirely submitted in C1-C2. D. Received labeled with the patient's name and "midline base of tongue" is a 1.1 x 0.8 x 0.5 cm tissue fragment; entirely submitted in D1. OK/pl INTRAOPERATIVE A. FSA1, RIGHT BASE OF TONGUE, [facility] CONSULTATION EXCISION: [facility] - NEGATIVE FOR MALIGNANCY - ONE PIECE OF FRESH TISSUE SUBMITTED FOR FLOW CYTOMETRY STUDY The findings are reported to Dr. Guevara by Dr. Morales at 8:13 a.m., 02/10/2019. MICROSCOPIC DESCRIPTION A-D, Performed. [facility] SPECIAL STUDIES The interpretation of this [facility] case included the use of [facility] immunohistochemistry or special stains. Immunohistochemistry technical testing was performed at [facility], Pathology Laboratory where it was developed and its performance characteristics were determined. It has not been cleared or approved by the U.S. Food and Drug Administration. The FDA has determined that such clearance or approval is not necessary. The test is used for clinical purposes. It should not be regarded as investigational or for research. This laboratory is certified under the Clinical Laboratory Improvement Amendments of 1988 (CLIA-88) as qualified to perform high complexity clinical laboratory testing. Specimen Tissue Tissue - Soft tissue (navigational concept) Tissue - Soft tissue (navigational concept) Tissue - Soft tissue (navigational concept) Performing Organization Address City/[facility]/Zipcode Phone Number [facility] [address] [place], [place] [phone] [facility] * Flow Cytometry Requisition (02/10/2019 8:48 AM CDT) Flow Cytometry See Separate Report [facility] Case # [id number] [facility] Specimen Tissue Performing Organization Address City/[facility] Phone Number [facility] [address] [place] [address] [facility] * Flow Cytometry (02/10/2019 8:48 AM CDT) Case Report Flow Cytometry [facility] Report [facility] Case: [id number] Authorizing Provider:John Guevara MD Collected: 02/10/2019 0848 Ordering Location: [address] Received: 02/10/2019 1344 Service Pathologist: Marcos Rebolledo MD Specimen:Other Flow Interpretation SOFT TISSUE, RIGHT BASE OF [facility] TONGUE, BIOPSY, FLOW [facility] CYTOMETRY: -NO MONOTYPIC B LYMPHOCYTE POPULATION -NO ABERRANT T LYMPHOCYTE POPULATION -MILDLY INCREASED CD4:CD8 RATIO (7.1) -SEE COMMENT Flow Interpretation Flow cytometric analysis of a [facility] Comment right, base of tongue biopsy [facility] sample did NOT demonstrate evidence of a non-Hodgkin B or T lymphocyte neoplastic process. However, Hodgkin lymphoma and lymphomas with rare large neoplastic cells are not easily discernible by flow cytometry. The CD4/CD8 ratio was increased. An elevated CD4/CD8 ratio on flow cytometry is a nonspecific finding which may be seen in both reactive and lymphoproliferative disorders. Recommend morphologic correlation with biopsy for definitive diagnosis. CPT Code(s) 74959 [facility] CELLULAR BIOMARKER CD8, surface-kappa, CD56, [facility] ANALYSIS surface-lambda, CD5, CD19, [facility] CD10, CD3, CD20, CD4, CD45 IMMUNOPHENOTYPIC FINDINGS Specimen Viability: 82.5% [facility] Number of Events Acquired: [facility] [id number] The following populations are identified: Lymphocytes: Bright CD45+ lymphocytes comprise 97.9% of total cells. T cells show a CD4:CD8 ratio of 7.1 and normal expression of the merino T cell antigens CD3 and CD5. B cells are polytypic with a kappa:lambda ratio of 1.8. Myeloid/monocytic populations: As identified by CD45 and light scatter characteristics, granulocytes comprise 0.3% of cells analyzed, and monocytes comprise 0.2% of total cells. The remaining events analyzed represent nonviable cells, non-hematolymphoid cells, and debris. DISCLAIMER These tests were developed and [facility] their performance [facility] characteristics determined by [facility] They have not been cleared or approved by the U.S. Food and Drug Administration. The FDA has determined that such clearance or approval is not necessary. It should not be regarded as investigational or for research. This laboratory is certified under the Clinical Laboratory Improvement Amendments of 1988 ("CLIA") as qualified to perform high-complexity clinical testing. Specimen Other Performing Organization Address City/[facility] [facility] [place] [address] [facility] * hCG, quantitative, (02/10/2019 6:42 AM CDT) hCG Quant <1 0 - 10 mIU/mL [facility] Specimen Blood Narrative Performed At Non- Females: <10 mIU/mL [facility] Females: [facility] Gestation AgeReference Range(mIU/mL) 0.2-1 Week5-50 1-2 [id number] 2-3 Weeks 100-5,000 3-4 Weeks 500-10,000 4-5 Weeks 1,000-50,000 5-6 Weeks10,000-100,000 6-8 Weeks15,000-200,000 2-3 Months 10,000-100,000 Performing Organization Address City/[facility]/Zipcode Phone Number [facility] [address] [place] [address] [facility] * BUN and Creatinine (01/15/2019 2:09 PM LEGAL BILLING SPECIALIST) BUN 10 7 - 21 mg/dL [facility] Creatinine 0.75Comment: Specimen slightly 0.57 - 1.25 mg/dL [facility] EGFR 89Comment: ESTIMATED GFR IS mL/min/1.73 sq m [facility] NOT ACCURATE CREATININE [facility] CLEARANCE IN PREDICTING GLOMERULAR FILTRATION RATE. ESTIMATED GFR IS NOT APPLICABLE FOR DIALYSIS PATIENTS. Specimen Blood Performing Organization Address City/[facility]/Zipcode Phone Number [address] * Platelet count (01/15/2019 2:09 PM LEGAL BILLING SPECIALIST) Platelets 370 150 - 450 K/CU MM [facility] Specimen Blood Performing Organization Address [facility] Cent[facility]ode Phone Number [address] * Hemoglobin (01/15/2019 2:09 PM LEGAL BILLING SPECIALIST) Hemoglobin 14.3 11.2 - 15.7 GM/DL [facility] Specimen Blood Performing Organization Address City/[facility] Centercofl Phone Number [address] * Electrolytes (01/15/2019 2:09 PM LEGAL BILLING SPECIALIST) Sodium 138 136 - 145 meq/L [facility] Potassium 4.1Comment: Specimen slightly 3.5 - 5.1 meq/L [facility] Chloride 102 98 - 107 meq/L [facility] CO2 26 22 - 29 meq/L [facility] Specimen Blood Performing Organization Address City/[facility] Centercode Phone Number [address] after 07/26/2018 Insurance Payer Benefit Subscriber ID Type Phone Address Plan / Group SERA ZAMORA xxxxxxxxxxx SUPERIOR Advance Directives For more information, please contact: [facility] [address] [place] [address] Date Inactivated Comments Code Status Date Activated 02/12/2019 4:16 PM Full Code 02/10/2019 11:43 AM This code status was determined by: Patient
[2019-07-27] MEDS ORDERED: DEXAMETHASONE SOD PHOS 10 MG/1 ML VIAL IM ONE (12:30)
[2019-07-27] MEDS ORDERED: KETOROLAC TROMETHAMINE 30 MG/ML VIAL IV ONE (12:30)
[2019-07-27 12:47] LABS: BASOPHILS % 0.4 % (0.0-1.0); EOSINOPHILS # (AUTO) 0.2 (0.0-0.4); EOSINOPHILS % 1.9 % (0.0-6.0); HEMATOCRIT 43.6 % (34.2-44.1); HEMOGLOBIN 14.8 g/dL (12.0-16.0); LYMPHOCYTES # (AUTO) 3.2 (1.0-3.2); LYMPHOCYTES % 34.8 % (18.0-39.1); MEAN CORPUSCULAR HEMOGLOBIN 30.1 pg (28-32); MEAN CORPUSCULAR HGB CONC 33.9 g/dL (31-35); MEAN CORPUSCULAR VOLUME 88.8 fL (81-99); MONOCYTES # (AUTO) 0.5 (0.2-0.8); MONOCYTES % 5.5 % (4.4-11.3); NEUTROPHILS # (AUTO) 5.3 (2.1-6.9); NEUTROPHILS % 57.1 % (38.7-80.0); PLATELET COUNT 390 x10e3/uL (140-360); RED BLOOD COUNT 4.91 x10e6/uL (3.6-5.1); RED CELL DISTRIBUTION WIDTH 12.1 % (11.7-14.4)
[2019-07-27 13:06] LABS: ALANINE AMINOTRANSFERASE 43 IU/L (0-55); ALBUMIN 3.3 g/dL (3.5-5.0); ALBUMIN/GLOBULIN RATIO 0.8 (0.8-2.0); ALKALINE PHOSPHATASE 103 IU/L (40-150); ANION GAP 14.7 mmol/L (8-16); BLOOD UREA NITROGEN 13 mg/dL (7-26); BUN/CREATININE RATIO 18 (6-25); CALCIUM 9.3 mg/dL (8.4-10.2); CARBON DIOXIDE 27 mmol/L (22-29); CHLORIDE 102 mmol/L (98-107); CREATININE, SERUM 0.73 mg/dL (0.57-1.11); EST GLOMERULAR FILTRATION RATE > 60 ML/MIN (60-); GLUCOSE 186 mg/dL (74-118); POTASSIUM 3.7 mmol/L (3.5-5.1); SODIUM 140 mmol/L (136-145)
--- NOTE | 2019-07-27 14:26 | Diagnostic Imaging Report ---
History: Neck swelling Comparison studies: CT neck 01/02/2019 Technique: Axial, coronal and sagittal images from the skull base to the thoracic inlet. Coronal and sagittal images reconstructed from the axial data. Intravenous contrast: 100 cc of Omnipaque 300. Dose modulation, iterative reconstruction, and/or weight based adjustment of the mA/kV was utilized to reduce the radiation dose to as low as reasonably achievable. Findings: Soft tissues: Stable enhancing tissues of the base of the tongue, with obliteration and bilateral vallecula, more prominent on the right, secondary to enlarged palatine tonsils, Lymph nodes: Again seen prominent bilateral level 2 lymph nodes. No radiographically significant adenopathy. Vessels: Arteries and veins are patent. Glands (thyroid, parotid and submandibular): Diffusely prominent thyroid gland without focal abnormality, the remaining glands are normal in size and symmetric. No masses. Orbits: No abnormalities. Paranasal sinuses: Clear. Temporal bones: No abnormalities. Skull base and facial bones: Intact. Cervical spine: Straightening of the cervical spine lordosis grossly patent canal and foramina IMPRESSION: 1. Enlarged bilateral lingual tonsils, with obliteration of the bilateral vallecula, stable. 2. Diffusely prominent thyroid gland, stable, correlation with TFTs recommended Signed by: DR Jaime Bunch M.D. on 07/27/2019 2:23 PM
[2019-07-27] MEDS ORDERED: SODIUM CHLORIDE 0.9% 50ML 50 ML ONE (18:20)
[2019-07-27] MEDS ORDERED: IOPAMIDOL 370 MG/ML 200 ML INFUS..BTL INJ ONE (18:20)
== END 2019-07-27 15:49 | disposition home or self-care (01) ==
LOC: ER 11:38
DX: R07.0 Pain in throat (principal); E11.9 Type 2 diabetes mellitus without complications; F41.9 Anxiety disorder, unspecified; K21.9 Gastro-esophageal reflux disease without esophagitis; E66.01 Morbid (severe) obesity due to excess calories
CPT/HCPCS: 36415; 70491; 80053; 81025; 83518; 84443; 85025; 87070; 99283; J1100; J1885; Q9967

== ENCOUNTER 2019-09-17 15:36 | Emergency (ER) | payer OTHER ==
[~2019-09-17] VITALS: Ht 162.6 cm; Wt 109.8 kg
--- OUTSIDE RECORDS SUMMARY | 2019-09-17 15:39 | XMS REPORT | Summary of Care ---
Author Author [facility] Organization [facility] Address Unknown Phone Unavailable Care Team Providers Care Line Operator Name Role Phone PCP Unavailable Reason for Referral * Radiology Services (Routine) Referred By Contact Referred To Contact Status Reason Specialty Diagnoses / Procedures John Guevara MD [address] [facility] [address] [place] [address] [facility] [address] [facility] [address] [place] [address] Pending Radiology Diagnoses Thyroid nodule location confirmed - vaf P rocedures US THYROID Reason for Visit * Reason Comments Follow Up 6 month follow up Encounter Details Care Team Description Date Type Department John Guevara MD [address] [facility] [address] [place], [place] [id number] Follow Up (6 month follow up ) 08/27/2019 Office Visit [facility] Otolaryngology [address] [facility] [address] [place] [phone] Allergies No Known Allergiesdocumented as of this encounter (statuses as of 08/31/2019) Medications End Date Status Medication Sig Dispensed Refills Start Date Active Insulin Glargine Inject 100 0 (BASAGLAR KWIKPEN) 100 Units into UNIT/ML SOPN the skin daily. Active TRULICITY 1.5 MG/0.5ML INJECT 1.5 MG 2 SOPN UNDER THE 9 SKIN EVERY WEEK ON FRIDAYS Active spironolactone TAKE 1 TABLET 2 (ALDACTONE) 25 MG tablet BY MOUTH 9 EVERY DAY Active escitalopram (LEXAPRO) 10 0 MG tablet 9 Active omeprazole (PRILOSEC) 40 Take 1 Cap by 30 Cap 5 MG capsule mouth 9 nightly. 08/27/2019 Discontinued metformin (GLUCOPHAGE-XR) Take 1,000 mg 0 500 MG XR tablet by mouth two 7 times daily. 08/27/2019 Discontinued levofloxacin (LEVAQUIN) Take 1 Tab by 10 Tab 0 500 MG tablet mouth daily. 9 documented as of this encounter (statuses as of 08/31/2019) Active Problems Not on filedocumented as of this encounter (statuses as of 08/31/2019) Social History Date Tobacco Use Types Packs/Day Years Used Former Smoker Smokeless Tobacco: Never Used Drinks/Week oz/Week Comments Alcohol Use No Alcohol Habits Answer Date Recorded How often do you have a drink containing alcohol? Never 01/08/2019 How many drinks containing alcohol do you [...] Travel Start No recent travel history available. documented as of this encounter Last Filed Vital Signs Reading Time Taken Comments Vital Sign 138/94 08/27/2019 9:56 AM CDT Blood Pressure 79 08/27/2019 9:56 AM CDT Pulse - - Temperature - - Respiratory Rate - - Oxygen Saturation - - Inhaled Oxygen Concentration 113.4 kg (250 lb) 08/27/2019 9:56 AM CDT Weight 162.6 cm (5' 4") 08/27/2019 9:56 AM CDT Height 42.91 08/27/2019 9:56 AM CDT Body Mass Index documented in this encounter Progress Notes * John Guevara MD - 08/27/2019 10:00 AM CDT Teaching Physician Attestation: I have spoken to and examined the patient and I agree with the assessment and pl an as documented by the resident. I performed flexible laryngoscopy as documented by Dr. Santos Guevara MD * Epi Graham - 08/27/2019 10:00 AM CDT Chief Complaint Patient presents with Follow Up 6 month follow up History of Present Illness: 33 y.o. Ms. Malik is a 33 year old woman with pmh of DM, HLD, PCOS who presents for a 6 month follow-up of lingual tonsillectomy. Since her surgery she has some reduce d sense of taste, but has recovered well otherwise. She has new complaints of p ain with swallowing both liquids and solids for the last 2 months. The pain is mild-moderate and unchanging. She went to the [facility] emergency dep artment about 1 month ago for this complaint and received a CT with contrast of the neck which showed some concern for thyroid pathology. There is no radiation of her pain and it feels like a "sore-throat". She took tylenol with minimal i mprovement. Of note, she recently described some increased fatigue and hair los s. Past Medical History: Diagnosis Date Diabetes mellitus (HCCode) High cholesterol Hypertension PCOS (polycystic ovarian syndrome) Past Surgical History: Procedure Laterality Date HX TONSILLECTOMY AND ADENOIDECTOMY Social History Tobacco Use Smoking status: Former Smoker Smokeless tobacco: Never Used Substance Use Topics Alcohol use: No Frequency: Never Drug use: No otherwise not related to this illness No family history on file. otherwise not related to this illness Allergies: Patient has no known allergies. Medications: Outpatient Medications Marked as Taking for the 08/27/19 encounter (Office Visit) with John Guevara MD Medication Sig Dispense Refill escitalopram (LEXAPRO) 10 MG tablet Insulin Glargine (BASAGLAR KWIKPEN) 100 UNIT/ML SOPN Inject 100 Units into t he skin daily. spironolactone (ALDACTONE) 25 MG tablet TAKE 1 TABLET BY MOUTH EVERY DAY 2 TRULICITY 1.5 MG/0.5ML SOPN INJECT 1.5 MG UNDER THE SKIN EVERY WEEK ON YS 2 Review of Systems: Constitutional: No fevers, chills, or weight loss. Eyes: No acute vision changes, eye pain, or scotomas Neurological: No seizures or paralysis. HEENT: See HPI Respiratory: No dyspnea or hemoptysis. Cardiovascular: No chest pain or palpitations. Gastrointestinal: No abdominal pain or melena. Pain with swallowing. Genitourinary: No dysuria, urinary frequency, or hematuria Integumentary: No rashes, pruritis, or new lesions Musculoskeletal: No joint pain, no joint swelling Hematological/lymphatic: No easy bruising or spontaneous gingival bleeding Physical Exam: BP (!) 138/94 | Pulse 79 | Ht 5' 4" (1.626 m) | Wt 250 lb (113.4 kg) | BMI 4 2.91 kg/m General: NAD, Strong voice. Able to hear conversational speech Head/Face: Normocephalic. No paranasal sinus tenderness, No parotid/submandibula r gland mass, facial movement symmetric. Eyes: PERRL. EOMI, Conjugate gaze. No nystagmus at rest or on lateral gaze Ears: B EAC Clear. B TM intact. B middle ears aerated Nose/Nasopharynx: [place] moist mucous membranes. Septum midline and intact. No mas ses or lesions. No rhinorrhea or epistaxis. Oral cavity/Oropharynx: Good dentition. No trismus. Tongue/uvula midline. Tongue fully mobile. Posterior oropharynx without erythema, edema, or exudates. Buccal mucosa and gingiva without lesions. No masses. FOM/BOT soft to palpation. Palat al elevation symmetric. Hypopharynx/Larynx: Neck: Supple, no LAD, no masses, no thyromegaly or thyroid masses Respiratory: Symmetric chest rise. No accessory muscle use. No retractions Integumentary: No rashes, no petechiae, no ecchymosis Lymphatics: No cervical lymphadenopathy Neurological/Psych: A&Ox3. CN II-XII grossly intact. Procedure: Flexible laryngoscopy with videostroboscopy. Indications: Hoarseness or dysphagia with concern for vocal edema, lesion or sca r, and need to assess mucosal wave. Also, insufficient to visualize with mirror secondary to prominent gag. Procedure in Detail: Examination was conducted with a flexible endoscope after spraying with 4% lidocaine and Thien-Synephrine. The microphone was used to trigge r the xenon stroboscopic light source. - Nasal cavity - There was no pus or polyps noted in the nasal cavity. Septum in tact - Nasopharynx - there was no evidence of mass or lesion. - Hypopharynx - There were no lesions in the pyriformis. There were large lingu al tonsils that slightly displace the epiglottis forward. There is post-cricoid swelling. - Larynx - there was mild interarytenoid edema, no erythema. - Vocal Folds - Good mobility of the arytenoids noted, clear membranous vocal fo lds bilaterally - Intact mucosal wave, good phase symmetry, and good phase closure. DIAGNOSIS: follow-up with new thyroid concern PLAN: - Obtain TSH with reflex T4 - Obtain thyroid ultrasound - PPI trial Epi Graham MD Otolaryngology Resident PGY1 documented in this encounter Plan of Treatment Care Team Description Date Type Specialty 09/09/2019 Ancillary Radiology Procedure Order Schedule Name Type Priority Associated Diagnoses 1 Occurrences starting 08/27/2019 until 08/27/2020 US THYROID Imaging Routine Thyroid nodule Ordered: 08/31/2019 MA LARYNGOSCOPY FLEXIBLE MA Charge Routine Thyroid nodule DIAGNOSTIC Health Maintenance Due Date Last Done Comments TETANUS SHOT (ADULT) 2000 BMI FOLLOW UP PLAN 2003 HIV SCREENING 2003 CERVICAL CANCER SCREENING 2006 3 YEAR FOLLOW UP FLU VACCINE > 6 MONTHS 06/26/2019 documented as of this encounter Procedures Comments Procedure Name Priority Date/Time Associated Diagnosis TSH REFLEX TO FREE T4 Routine 08/27/2019 Thyroid nodule 1:18 AM CDT documented in this encounter Results * TSH REFLEX TO FREE T4 (08/27/2019 1:18 AM CDT) THYROID 2.790 0.400 - 4.100 UIU/ML CPL STIMULATING Comment: HORMONE Unless Otherwise Indicated, All Testing Performed At: [facility], [address] [place] [id number] Perfumer: Eveline Ruth Number [id number]. [id number] Specimen Performing Organization Address City/State/Zipcode Phone Number [address] [address] documented in this encounter Visit Diagnoses Diagnosis Thyroid nodule - Primary Nontoxic uninodular goiter documented in this encounter Insurance Type Payer Benefit Subscriber ID Effective Phone Address Plan / Dates Group [facility] - xxxxxxxxxxx 2019-P [address] [address] documented as of this encounter
[2019-09-17 16:52] LABS: BASOPHILS % 0.5 % (0.0-1.0); EOSINOPHILS # (AUTO) 0.2 (0.0-0.4); EOSINOPHILS % 1.7 % (0.0-6.0); HEMATOCRIT 42.9 % (34.2-44.1); LYMPHOCYTES % 34.5 % (18.0-39.1); MEAN CORPUSCULAR HGB CONC 32.6 g/dL (31-35); MEAN CORPUSCULAR VOLUME 91.9 fL (81-99); MONOCYTES # (AUTO) 0.5 (0.2-0.8); MONOCYTES % 6.2 % (4.4-11.3); NEUTROPHILS % 56.5 % (38.7-80.0); PLATELET COUNT 382 x10e3/uL (140-360); RED BLOOD COUNT 4.67 x10e6/uL (3.6-5.1); RED CELL DISTRIBUTION WIDTH 12.6 % (11.7-14.4)
[2019-09-17 17:15] LABS: ALANINE AMINOTRANSFERASE 31 IU/L (0-55); ALBUMIN 3.4 g/dL (3.5-5.0); ALBUMIN/GLOBULIN RATIO 0.8 (0.8-2.0); ALKALINE PHOSPHATASE 114 IU/L (40-150); ANION GAP 13.6 mmol/L (8-16); BLOOD UREA NITROGEN 10 mg/dL (7-26); BUN/CREATININE RATIO 16 (6-25); CALCIUM 9.6 mg/dL (8.4-10.2); CARBON DIOXIDE 26 mmol/L (22-29); CHLORIDE 98 mmol/L (98-107); CREATININE, SERUM 0.64 mg/dL (0.57-1.11); EST GLOMERULAR FILTRATION RATE > 60 ML/MIN (60-); GLUCOSE 266 mg/dL (74-118); POTASSIUM 3.6 mmol/L (3.5-5.1); SODIUM 134 mmol/L (136-145)
[2019-09-17 19:22] LABS: BILIRUBIN,URINE NEGATIVE (NEGATIVE); CLARITY,URINE SL CLOUDY (CLEAR); COLOR,URINE YELLOW (YELLOW); KETONES,URINE NEGATIVE (NEGATIVE); LEUKOCYTE ESTERASE ,URINE NEGATIVE (NEGATIVE); NITRITE,URINE NEGATIVE (NEGATIVE); PROTEIN,URINE DIPSTICK NEGATIVE (NEGATIVE); URINE UROBILINOGEN 0.2 mg/dL (0.2 - 1)
[2019-09-17 19:39] LABS: BACTERIA,URINE FEW /HPF; EPITHELIAL CELLS,URINE MODERATE /LPF; RBC,URINE 0-5 /HPF (0-5)
[2019-09-17] MEDS ORDERED: KETOROLAC TROMETHAMINE 60 MG/2 ML VIAL IV ONE (20:00)
[2019-09-17] MEDS ORDERED: HYDROCODONE/APAP 5MG-325MG TAB PO ONE (20:00)
[2019-09-17] MEDS ORDERED: DEXAMETHASONE SOD PHOS 10 MG/1 ML VIAL IV ONE (20:00)
[2019-09-17] MEDS ORDERED: KETOROLAC TROMETHAMINE 30 MG/ML VIAL ONE (20:07)
[2019-09-17] MEDS ORDERED: HYDROCODONE/APAP 5MG-325MG TAB ONE (20:07)
[2019-09-17] MEDS ORDERED: DEXAMETHASONE SOD PHOS 10 MG/1 ML VIAL ONE (20:08)
[2019-09-17 20:09] VITALS: BP 144/77
[2019-09-17] MEDS ORDERED: KETOROLAC TROMETHAMINE 30 MG/ML VIAL IV ONE (20:15)
== END 2019-09-17 20:24 | disposition home or self-care (01) ==
LOC: ER 15:36
DX: M54.2 Cervicalgia (principal); R59.1 Generalized enlarged lymph nodes; E11.65 Type 2 diabetes mellitus with hyperglycemia; K21.9 Gastro-esophageal reflux disease without esophagitis; F41.9 Anxiety disorder, unspecified; E66.01 Morbid (severe) obesity due to excess calories
CPT/HCPCS: 36415; 80053; 81001; 83518; 84702; 85025; 87070; 99283; J1100; J1885

== ENCOUNTER 2019-09-24 08:29 | Emergency (ER) | payer OTHER ==
[~2019-09-24] VITALS: Ht 162.6 cm; Wt 109.8 kg
== END 2019-09-24 09:10 | disposition left against medical advice (07) ==
LOC: ER 08:29
DX: R59.9 Enlarged lymph nodes, unspecified (principal)

== ENCOUNTER 2019-10-05 10:34 | Emergency (ER) | payer OTHER ==
[~2019-10-05] VITALS: Ht 162.6 cm; Wt 109.8 kg
[2019-10-05] MEDS ORDERED: TRAMADOL HCL 50 MG TAB PO ONE (11:30)
[2019-10-05 12:06] VITALS: BP 118/72
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
== END 2019-10-05 12:49 | disposition home or self-care (01) ==
LOC: ER 10:34
DX: S39.012A Strain of muscle, fascia and tendon of lower back, initial encounter (principal); V43.52XA Car driver injured in collision with other type car in traffic accident, initial encounter; Y92.488 Other paved roadways as the place of occurrence of the external cause; E11.9 Type 2 diabetes mellitus without complications; F41.9 Anxiety disorder, unspecified; K21.9 Gastro-esophageal reflux disease without esophagitis; E28.2 Polycystic ovarian syndrome; E66.01 Morbid (severe) obesity due to excess calories
CPT/HCPCS: 72110; 81025; 99283

== ENCOUNTER 2020-09-04 07:02 | Emergency (ER) | payer OTHER ==
[~2020-09-04] VITALS: Ht 162.6 cm; Wt 109.8 kg
[2020-09-04] MEDS ORDERED: PANTOPRAZOLE 40 MG 10ML VIAL IV STA (07:18)
[2020-09-04] MEDS ORDERED: SODIUM CHLORIDE 0.9% 1000ML 1,000 ML IV STA (07:18)
[2020-09-04] MEDS ORDERED: ONDANSETRON HCL INJ 2MG/ML 2ML 2 MG/ML VIAL IV STA (07:18)
[2020-09-04 07:56] LABS: BASOPHILS % 0.2 % (0.0-1.0); EOSINOPHILS # (AUTO) 0.2 (0.0-0.4); EOSINOPHILS % 1.9 % (0.0-6.0); LYMPHOCYTES # (AUTO) 2.2 (1.0-3.2); LYMPHOCYTES % 20.9 % (18.0-39.1); MEAN CORPUSCULAR HGB CONC 32.5 g/dL (31-35); MEAN CORPUSCULAR VOLUME 92.2 fL (81-99); MONOCYTES # (AUTO) 0.7 (0.2-0.8); MONOCYTES % 6.4 % (4.4-11.3); NEUTROPHILS # (AUTO) 7.3 (2.1-6.9); PLATELET COUNT 386 x10e3/uL (140-360); RED BLOOD COUNT 4.34 x10e6/uL (3.6-5.1); RED CELL DISTRIBUTION WIDTH 12.6 % (11.7-14.4)
[2020-09-04 07:59] LABS: BILIRUBIN,URINE MODERATE (NEGATIVE); CLARITY,URINE TURBID (CLEAR); COLOR,URINE ORANGE (YELLOW); KETONES,URINE NEGATIVE (NEGATIVE); LEUKOCYTE ESTERASE ,URINE NEGATIVE (NEGATIVE); NITRITE,URINE POSITIVE (NEGATIVE); PROTEIN,URINE DIPSTICK 2+ (NEGATIVE); URINE UROBILINOGEN 1 mg/dL (0.2 - 1)
[2020-09-04 08:00] LABS: PREGNANCY TEST, URINE NEGATIVE (NEGATIVE)
[2020-09-04 08:04] LABS: AMORPHOUS SEDIMENT,URINE MODERATE (FEW); BACTERIA,URINE MANY /HPF; EPITHELIAL CELLS,URINE FEW /LPF; RBC,URINE >50 /HPF (0-5); WBC,URINE (MAN) 0-5 /HPF (0-5)
[2020-09-04 08:05] LABS: MUCUS,URINE FEW (RARE)
[2020-09-04 08:06] LABS: INR 0.98; PROTHROMBIN TIME 13.5 seconds (11.9-14.5)
[2020-09-04 08:07] LABS: PARTIAL THROMBOPLASTIN TIME 29.2 seconds (23.8-35.5)
[2020-09-04 08:17] LABS: ALANINE AMINOTRANSFERASE 22 IU/L (0-55); ALBUMIN 3.3 g/dL (3.5-5.0); ALBUMIN/GLOBULIN RATIO 0.8 (0.8-2.0); ALKALINE PHOSPHATASE 96 IU/L (40-150); AMYLASE 49 U/L (25-125); ANION GAP 15.1 mmol/L (8-16); BLOOD UREA NITROGEN 14 mg/dL (7-26); BUN/CREATININE RATIO 18 (6-25); CALCIUM 8.3 mg/dL (8.4-10.2); CARBON DIOXIDE 22 mmol/L (22-29); CHLORIDE 103 mmol/L (98-107); CREATINE KINASE 51 IU/L (29-168); CREATININE, SERUM 0.78 mg/dL (0.57-1.11); EST GLOMERULAR FILTRATION RATE > 60 ML/MIN (60-); GLUCOSE 230 mg/dL (74-118); LIPASE 36 U/L (8-78); POTASSIUM 4.1 mmol/L (3.5-5.1); SODIUM 136 mmol/L (136-145)
[2020-09-04] MEDS ORDERED: IOPAMIDOL 370 MG/ML 200 ML INFUS..BTL INJ ONE (09:46)
[2020-09-04] MEDS ORDERED: SODIUM CHLORIDE 0.9% 50ML 50 ML ONE (09:46)
== END 2020-09-04 10:41 | disposition home or self-care (01) ==
LOC: ER 07:12
DX: N93.8 Other specified abnormal uterine and vaginal bleeding (principal); R10.9 Unspecified abdominal pain; N39.0 Urinary tract infection, site not specified; I10 Essential (primary) hypertension; E11.9 Type 2 diabetes mellitus without complications; F41.9 Anxiety disorder, unspecified; F32.9 Major depressive disorder, single episode, unspecified; K21.9 Gastro-esophageal reflux disease without esophagitis; E28.2 Polycystic ovarian syndrome; E66.01 Morbid (severe) obesity due to excess calories
CPT/HCPCS: 36415; 74177; 80053; 81001; 81025; 82150; 82550; 82553; 83690; 84484; 85025; 85610; 85730; 87086; 93005; 99284; C9113; J2405; J7030; Q9967

== ENCOUNTER 2021-11-11 12:42 | Emergency (ER) | payer SELFPAY ==
[~2021-11-11] VITALS: Ht 162.6 cm; Wt 106.6 kg
[2021-11-11] MEDS ORDERED: ACETAMINOPHEN 325 MG TAB PO ONE (13:00)
[2021-11-11] MEDS ORDERED: AMOXICILLIN500 MG PO (14:05)
== END 2021-11-11 14:44 | disposition home or self-care (01) ==
LOC: ER 12:50
DX: R50.9 Fever, unspecified (principal); J02.0 Streptococcal pharyngitis; I10 Essential (primary) hypertension; E11.9 Type 2 diabetes mellitus without complications; K21.9 Gastro-esophageal reflux disease without esophagitis; F41.9 Anxiety disorder, unspecified; E28.2 Polycystic ovarian syndrome; Z20.822 Contact with and (suspected) exposure to COVID-19
CPT/HCPCS: 83518; 99283; U0002

== ENCOUNTER 2022-10-23 09:25 | Emergency (ER) | payer OTHER ==
[~2022-10-23] VITALS: Ht 162.6 cm; Wt 106.6 kg
[~2022-10-23 09:25] MED LIST changes: +AMOXICILLIN500 MG PO
[2022-10-23] MEDS ORDERED: IBUPROFEN 600 MG TAB PO STA (09:34)
== END 2022-10-23 11:43 | disposition home or self-care (01) ==
LOC: ER 09:29
DX: M54.2 Cervicalgia (principal); V43.52XA Car driver injured in collision with other type car in traffic accident, initial encounter; Y93.89 Activity, other specified; Y92.410 Unspecified street and highway as the place of occurrence of the external cause; I10 Essential (primary) hypertension; E78.5 Hyperlipidemia, unspecified; E28.2 Polycystic ovarian syndrome; F41.9 Anxiety disorder, unspecified
CPT/HCPCS: 72050; 72070; 99283

== ENCOUNTER 2024-06-28 12:26 | Emergency (ER) | payer SELFPAY ==
[~2024-06-28] VITALS: Ht 162.6 cm; Wt 106.6 kg
[~2024-06-28 12:26] MED LIST changes: +FLUCONAZOLE150 MG PO
[2024-06-28 13:11] VITALS: TEMP 97.8
[2024-06-28 13:34] LABS: BASOPHILS % 0.4 % (0.0-1.0); EOSINOPHILS # (AUTO) 0.1 (0.0-0.4); EOSINOPHILS % 1.1 % (0.0-6.0); HEMATOCRIT 44.2 % (34.2-44.1); HEMOGLOBIN 14.8 g/dL (12.0-16.0); LYMPHOCYTES # (AUTO) 3.3 (1.0-3.2); LYMPHOCYTES % 38.4 % (18.0-39.1); MEAN CORPUSCULAR HEMOGLOBIN 31.1 pg (28-32); MEAN CORPUSCULAR HGB CONC 33.5 g/dL (31-35); MEAN CORPUSCULAR VOLUME 92.9 fL (81-99); MONOCYTES # (AUTO) 0.6 (0.2-0.8); MONOCYTES % 6.4 % (4.4-11.3); NEUTROPHILS # (AUTO) 4.6 (2.1-6.9); NEUTROPHILS % 53.2 % (38.7-80.0); PLATELET COUNT 381 x10e3/uL (140-360); RED BLOOD COUNT 4.76 x10e6/uL (3.6-5.1); RED CELL DISTRIBUTION WIDTH 11.9 % (11.7-14.4); WHITE BLOOD COUNT 8.57 x10e3/uL (4.8-10.8)
[2024-06-28] MEDS: FAMOTIDINE 20 MG/2 ML VIAL IV STA (13:41)
[2024-06-28] MEDS: ONDANSETRON HCL INJ 2MG/ML 2ML 2 MG/ML VIAL IV STA (13:41)
[2024-06-28] MEDS: SODIUM CHLORIDE 0.9% 1000ML 1,000 ML IV STA (13:41)
[2024-06-28 13:53] LABS: INR 0.87; PROTHROMBIN TIME 12.5 seconds (11.9-14.5)
[2024-06-28 14:03] LABS: ALANINE AMINOTRANSFERASE 17 IU/L (0-55); ALBUMIN 3.6 g/dL (3.5-5.0); ALBUMIN/GLOBULIN RATIO 0.9 (0.8-2.0); ALKALINE PHOSPHATASE 101 IU/L (40-150); ANION GAP 15.9 mmol/L (8-16); BILIRUBIN,TOTAL 1.3 mg/dL (0.2-1.2); BLOOD UREA NITROGEN 16 mg/dL (7-26); BUN/CREATININE RATIO 20 (6-25); CALCIUM 9.5 mg/dL (8.4-10.2); CARBON DIOXIDE 24 mmol/L (22-29); CHLORIDE 98 mmol/L (98-107); EST GLOMERULAR FILTRATION RATE 97 ML/MIN (>=60); GLUCOSE 303 mg/dL (74-118); LIPASE 87 U/L (8-78); POTASSIUM 3.9 mmol/L (3.5-5.1); SODIUM 134 mmol/L (136-145); TOTAL PROTEIN 7.4 g/dL (6.5-8.1)
[2024-06-28 14:18] LABS: TROPONIN I < 0.001 ng/mL (0-0.300)
[2024-06-28 14:53] LABS: BILIRUBIN,URINE NEGATIVE (NEGATIVE); CLARITY,URINE CLEAR (CLEAR); COLOR,URINE YELLOW (YELLOW); GLUCOSE, URINE 500 (NEGATIVE); KETONES,URINE NEGATIVE (NEGATIVE); LEUKOCYTE ESTERASE ,URINE NEGATIVE (NEGATIVE); NITRITE,URINE NEGATIVE (NEGATIVE); PH,URINE 5.5 (5 - 7); PROTEIN,URINE DIPSTICK NEGATIVE (NEGATIVE); URINE UROBILINOGEN 0.2 mg/dL (0.2 - 1)
[2024-06-28 15:17] LABS: BACTERIA,URINE FEW /HPF; EPITHELIAL CELLS,URINE MANY /LPF; RBC,URINE 0-5 /HPF (0-5)
[2024-06-28 15:18] VITALS: PULSE 83; RESP 18
[2024-06-28] MEDS ORDERED: DICYCLOMINE HCL20 MG PO (16:01)
[2024-06-28] MEDS ORDERED: ONDANSETRON ODT4 MG PO (16:01)
[2024-06-28 16:19] VITALS: BP 113/67; PULSE 83; RESP 18; TEMP 98.5; O2SAT 100
== END 2024-06-28 16:20 | disposition home or self-care (01) ==
LOC: ER 13:14
DX: R11.2 Nausea with vomiting, unspecified (principal); K29.70 Gastritis, unspecified, without bleeding; K80.20 Calculus of gallbladder without cholecystitis without obstruction; R10.11 Right upper quadrant pain; R16.0 Hepatomegaly, not elsewhere classified; K76.0 Fatty (change of) liver, not elsewhere classified; E11.65 Type 2 diabetes mellitus with hyperglycemia; I10 Essential (primary) hypertension; E78.5 Hyperlipidemia, unspecified; E28.2 Polycystic ovarian syndrome; K21.9 Gastro-esophageal reflux disease without esophagitis; F41.9 Anxiety disorder, unspecified; R94.31 Abnormal electrocardiogram [ECG] [EKG]
CPT/HCPCS: 36415; 71045; 76705; 80053; 81001; 82948; 83690; 83735; 84484; 85025; 85610; 85730; 87086; 93005; 99284; J2405; J7030